=== PATIENT | male | born 1980 | race Caucasian/White ===

== ENCOUNTER 2021-01-04 13:47 | Outpatient (CLI) | payer OTHER, SELFPAY ==
--- NOTE | ~2021-01-04 | US_ITS ---
EXAMINATION: US thyroid EXAM DATE: 01/04/2021 14:24 INDICATION: Hypothyroidism. TECHNIQUE: Multiple grayscale and Doppler images of the thyroid were obtained (by a technologist who performed the scan) and subsequently reviewed. Individual nodules and recommendations may be reporte d in accordance with TI-RADS system as designated by the 2017 ACR White Paper TI-RADS committee. The re is no prior study for comparison. FINDINGS: Right there are lobe measures 4.4 x 1.6 x 1.7 cm, the left measuring 4.1 x 1.0 x 1.2 cm. There is sig nificantly heterogeneous thyroid echogenicity along with hypervascularity, appearance could indicate Juana's thyroiditis. Clinical correlation. No definite focal superimposed nodule identified withi n the heterogeneous parenchyma. IMPRESSION: Heterogeneous, hypervascular mildly enlarged thyroid. Clinical correlation. Reviewed, dictated and finalized at location A. IMPRESSION: Heterogeneous, hypervascular mildly enlarged thyroid. Clinical heather elation.
== END 2021-01-04 13:48 | disposition home or self-care (01) ==
PROVIDERS: PCP Emergency Medicine; Visit Provider Emergency Medicine
DX: E03.9 Hypothyroidism, unspecified (principal)
CPT/HCPCS: 76536

== ENCOUNTER → 2021-03-15 07:34 | Outpatient (CLI) | payer OTHER, SELFPAY ==
[2021-03-15 20:28] LABS: SARS-CoV-2 RNA PCR Negative
== END ==
PROVIDERS: PCP Emergency Medicine; Visit Provider Emergency Medicine
DX: R68.89 Other general symptoms and signs (principal); Z20.822 Contact with and (suspected) exposure to COVID-19
CPT/HCPCS: C9803; U0003; U0005

== ENCOUNTER 2021-06-28 08:58 | Outpatient (CLI) | payer OTHER, SELFPAY ==
--- NOTE | 2021-06-28 11:00 | NEURO_ITS ---
Impression: # Complains of gait dysfunction for long duration. # Normal nerve conduction study with polyphasic responses and significant decreased motor unit potentials. # Needle/EMG revealed neurogenic changes. 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 Nerve Conduction Studies Anti Sensory Summary Table Stim Site NR Peak (ms) P-T Amp (?V) Site1 Site2 Delta-P (ms) Dist (cm) Mihai (m/s) Left Sup Fibular Anti Sensory (Ant Lat Mall) 14 cm 3.8 6.1 14 cm Ant Lat Mall 3.8 16.0 42 Right Sup Fibular Anti Sensory (Ant Lat Mall) 14 cm 4.0 18.1 14 cm Ant Lat Mall 4.0 17.0 43 Left Sural Anti Sensory (Lat Mall) Calf 4.5 20.0 Calf Lat Mall 4.5 18.0 40 Right Sural Anti Sensory (Lat Mall) Calf 3.7 14.4 Calf Lat Mall 3.7 16.0 43 Motor Summary Table Stim Site NR Onset (ms) O-P Amp (mV) Site1 Site2 Delta-0 (ms) Dist (cm) Mihai (m/s) Left Peroneal Motor (Vastus Med) Ankle 4.3 1.1 Popit Ankle 8.6 40.0 47 Popit 12.9 1.2 Right Peroneal Motor (Vastus Med) Ankle 4.5 4.1 Popit Ankle 7.8 38.0 49 Popit 12.3 3.8 Left Tibial Motor (Abd Greenwood Brev) Ankle 4.9 0.6 Knee Ankle 9.2 44.0 48 Knee 14.1 0.5 Right Tibial Motor (Abd Greenwood Brev) Ankle 5.0 2.8 Knee Ankle 9.1 42.0 46 Knee 14.1 1.8 F Wave Studies NR F-Lat (ms) L-R F-Lat (ms) Left Peroneal (Mrkrs) (EDB) 53.54 0.74 Right Peroneal (Mrkrs) (EDB) 52.80 0.74 Left Tibial (Mrkrs) (Abd Hallucis) 54.52 0.38 Right Tibial (Mrkrs) (Abd Hallucis) 54.90 0.38 EMG Side Muscle Nerve Root Ins Act Fibs Amp Dur Recrt Comment Right AntTibialis Dp Br Fibular L4-5 Nml Nml Decr >12ms Reduced Right Gastroc Tibial S1-2 Nml Nml Decr >12ms Reduced Right Fibularis Long Sup Br Fibular L5-S1 Nml Nml Decr >12ms Reduced Right Flex Dig Long Tibial L5-S2 Nml Nml Nml Nml Nml Right Ext Dig Brev Dp Br Fibular L5, S1 Nml Nml Decr >12ms Reduced Left AntTibialis Dp Br Fibular L4-5 Nml Nml Decr >12ms Reduced Left Gastroc Tibial S1-2 Nml Nml Decr >12ms Reduced Left Flex Dig Long Tibial L5-S2 Nml Nml Nml Nml Nml Left Fibularis Long Sup Br Fibular L5-S1 Nml Nml Decr >12ms Reduced Left Ext Dig Brev Dp Br Fibular L5, S1 Nml Nml Decr >12ms Reduced MTDD
== END 2021-06-28 08:59 | disposition home or self-care (01) ==
LOC: ANHNEURO 09:01
PROVIDERS: PCP Emergency Medicine; Visit Provider Emergency Medicine
DX: G62.9 Polyneuropathy, unspecified (principal)
CPT/HCPCS: 95886; 95910

== ENCOUNTER → 2022-01-23 11:21 | Outpatient (CLI) | payer OTHER, SELFPAY ==
--- NOTE | ~2022-01-23 | US_ITS ---
EXAMINATION: US scrotum doppler DATE: 01/23/2022 11:59 INDICATION: ORCHALGIA . TECHNIQUE: Grayscale and Doppler ultrasound images of the testes were obtained. COMPARISON: None. FINDINGS: The right testis measures 5.3 x 3.4 x 3.1 cm. The left testis measures 4.6 x 3.4 x 3.0 cm. No testicular mass. There is normal vascular flow to both testes. The right epididymis is normal with normal vascular flow. The left epididymis contains a 2 cm simple cyst, with normal vascular flow. Sm all bilateral hydroceles. Small bilateral varicoceles. IMPRESSION: 2 cm left epididymal cyst. Small bilateral hydroceles. Small bilateral varicoceles. Reviewed, dictated and finalized at location K. IMPRESSION: 2 cm left epididymal cyst. Small bilateral hydroceles. Small bilateral varicoce les.
== END ==
PROVIDERS: PCP Emergency Medicine; Visit Provider Nurse Practitioner
DX: N50.819 Testicular pain, unspecified (principal); N50.3 Cyst of epididymis; N43.3 Hydrocele, unspecified; I86.1 Scrotal varices
CPT/HCPCS: 76870; 93976

== ENCOUNTER 2023-04-03 13:35 | Outpatient (CLI) | payer OTHER, SELFPAY ==
--- NOTE | ~2023-04-03 | XR_ITS ---
EXAMINATION: XR chest 2V 04/03/2023 13:58 INDICATION: Cough PROCEDURE: 2 view chest COMPARISON: 12/10/2010 FINDINGS: The lungs are clear. The cardiomediastinal silhouette is within normal limits. There are no pleural effusions. There is no pneumothorax suspected. IMPRESSION: 1: NO ACUTE CARDIOPULMONARY DISEASE. Reviewed, dictated and finalized at location L. NG MACHINE OPERATOR
== END 2023-04-03 13:36 | disposition home or self-care (01) ==
PROVIDERS: PCP Emergency Medicine; Visit Provider Emergency Medicine
DX: R61 Generalized hyperhidrosis (principal)
CPT/HCPCS: 71046

== ENCOUNTER 2023-04-18 05:49 | Day surgery (SDC) | payer OTHER, SELFPAY ==
[2023-04-13 09:47] VITALS: BMI 21.6
[2023-04-13 10:18] VITALS: BMI 21.8
[2023-04-18 06:22] VITALS: BP 131/110; PULSE 102; RESP 20; TEMP 37.7; O2SAT 100
[2023-04-18] MEDS: LACTATED RINGERS 1,000 ML 150 ML IV CONT (06:33)
--- NOTE | 2023-04-18 07:10 | P.PNAN_ITS ---
Anes - Initial Pre Proc Eval Procedure: Operation Date: 04/18/23 07:30 Proposed Procedures p Esophagogastroduodenoscopy - Andrés Andres MD s Colonoscopy - Andrés Andres MD Date/Time: 04/18/23 07:10 Surgeon: Andrés Andres MD Pre Op Diagnosis: Hepatomegaly w/splenomegaly, weight loss Patient Data Age: 42 Gender: M Height: 1.8 m Weight: 66.5 kg Last Vital Signs Temp 37.7 C H 04/18/23 06:22 Pulse 102 H 04/18/23 06:22 Resp 20 04/18/23 06:22 BP 131/110 H 04/18/23 06:22 Pulse Ox 100 04/18/23 06:22 O2 Del Method Room Air 04/18/23 06:22 Allergies Allergy/AdvReac Type Severity Reaction Status Date / Time No Known Allergies Allergy Verified 04/18/23 06:19 Home Medications Medication Instructions Recorded Confirmed Type baclofen 10 mg tablet 10 mg PO DAILY 04/13/23 04/18/23 History gabapentin 600 mg tablet 600 mg PO DAILY 04/13/23 04/18/23 History ipratropium 20 mcg-albuterol 100 1 puff inhalation DAILY 04/13/23 04/18/23 History mcg/actuation mist for inhalation (Combivent Respimat) levothyroxine 50 mcg tablet 50 mcg PO DAILY 04/13/23 04/18/23 History rosuvastatin 10 mg tablet 10 mg PO DAILY 04/13/23 04/18/23 History sertraline 100 mg tablet 100 mg POST-TRANSFUSION 04/13/23 04/18/23 History sodium,potassium,mag sulfates 17.5 See Rx Instructions PO .COMPLEX 04/13/23 04/18/23 Rx gram-3.13 gram-1.6 gram oral soln #354 mL (Suprep Bowel Prep Kit) Patient hx anesthesia problems: none Family hx anesthesia problems: none Results Review: All pre-operative results and documents have been reviewed as part of the pre- operative evaluation. [facility] Social History Social History Smoking packs per day: 0.5 Smoking cigarettes per day: 10.0 Years smoked: 20 Smoking pack-years: 10.00 Smoking status: Current every day smoker Tobacco type: cigarettes Alcohol intake: never Substance use: never Living arrangements: with family Spiritual care concerns: No Anes - Eval Final PreProcedure Day of Procedure 04/18/23 07:10 Patient weight: thin Heart: regular rate and rhythm Lungs: decreased breath sounds Airway: Mallampati scale class II Neurological: alert and oriented Last oral intake: >/= 8 hours ASA classification: III Emergent: no Anesthetic plan: proceed Anesthesia type and monitoring: general GIVS and standard monitoring Results Review: All pre-operative results and documents have been reviewed as part of the pre- operative evaluation. Informed Consent: The patient's anesthetic plan and its attendant risks and benefits were discussed with the patient/family/POA. Questions were solicited and answers provided to the satisfaction of the patient/family/POA.
--- NOTE | 2023-04-18 07:21 | PM.HPGS ---
History of Present Illness History of Present Illness Consent: Risks, benefits, and alternatives have been discussed and questions answered. Patient agrees to proceed with procedure. Chief complaint: Hepatomegaly w/splenomegaly, weight loss Narrative: Graham Kerr is a 42 [address] Dr. Evans. Patient complaining of malaise appears states he has a poor appetite. He gets full early states he has perhaps lost 20lb over the last 6 months. Apparently he went to the ER in [place]. He was found to have an elevated white count. Subsequently referred to Hematology for evaluation with workup in progress. These records are not available for review. A CT scan is described that apparently shows enlarged liver and spleen. He denies any prior liver or spleen difficulties. 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 Patient does provide recent CBC with mildly elevated white count of 14. Iron studies are normal. Function tests are normal. Scope be and EGD are requested Review of Systems Review of Systems: All systems reviewed & are unremarkable except as noted in HPI and below PMFSH Social History Social History Smoking packs per day: 0.5 Smoking cigarettes per day: 10.0 Years smoked: 20 Smoking pack-years: 10.00 Smoking status: Current every day smoker Tobacco type: cigarettes Alcohol intake: never Substance use: never Living arrangements: with family Spiritual care concerns: No Meds Home Medications and Allergies Home Medications Medication Instructions Recorded Confirmed Type baclofen 10 mg tablet 10 mg PO DAILY 04/13/23 04/18/23 History gabapentin 600 mg tablet 600 mg PO DAILY 04/13/23 04/18/23 History ipratropium 20 mcg-albuterol 100 1 puff inhalation DAILY 04/13/23 04/18/23 History mcg/actuation mist for inhalation (Combivent Respimat) levothyroxine 50 mcg tablet 50 mcg PO DAILY 04/13/23 04/18/23 History rosuvastatin 10 mg tablet 10 mg PO DAILY 04/13/23 04/18/23 History sertraline 100 mg tablet 100 mg POST-TRANSFUSION 04/13/23 04/18/23 History sodium,potassium,mag sulfates 17.5 See Rx Instructions PO .COMPLEX 04/13/23 04/18/23 Rx gram-3.13 gram-1.6 gram oral soln #354 mL (Suprep Bowel Prep Kit) Allergies Allergy/AdvReac Type Severity Reaction Status Date / Time No Known Allergies Allergy Verified 04/18/23 06:19 Vital Signs Vital Signs - 24 hr 04/18/23 06:22 Temperature 99.9 F H Pulse Rate 102 H Respiratory Rate 20 Blood Pressure 131/110 H Pulse Oximetry 100 Oxygen Delivery Room Air Exam Narrative: Physical exam reveals patient to be alert. Vital signs stable. HEENT exam is unremarkable. Patient is anicteric. Lungs are clear to auscultation and to percussion. Heart is without murmur or extra sounds. Abdomen is soft. Bowel sounds are present nontender with no organomegaly. Digital external rectal exam is normal. Assessment and Plan Assessment and plan (1) Weight loss: Code(s): R63.4 - Abnormal weight loss Status: Acute Assessment and Plan: Patient has weight loss which is rather nonspecific. Patient reports an abnormal CT scan which apparently showed enlarged liver and spleen. Colonoscopy and EGD are requested which will be performed today. It may be prudent to have all lactose x-rays available and patient be seen in the ER for a full consultation. (2) Abnormal CT scan, liver: Code(s): R93.2 - Abnormal findings on diagnostic imaging of liver and biliary tract Status: Acute Assessment and Plan: Obvious liver enlargement on physical exam. A abnormal x-ray described as not available for review. Suggest this x-ray accompany patient consultation if necessary.
[2023-04-18 07:57] VITALS: BP 81/58; PULSE 81; RESP 20; O2SAT 98
[2023-04-18 08:08] VITALS: BP 90/62; PULSE 75; RESP 20; O2SAT 98
[2023-04-18 08:17] VITALS: BP 106/84; PULSE 70; RESP 18; O2SAT 100
[2023-04-18 08:27] VITALS: BP 116/88; PULSE 79; RESP 18; O2SAT 100
--- NOTE | 2023-04-18 09:03 | WPDANESPN ---
Anes - Prog Note Post-Op Date/Time: 04/18/23 09:03 Cardiovascular status: normal Respiratory status: normal Airway patency: baseline Mental status: baseline Post-Op hydration status: normal Vital Signs: Last Vital Signs Temp 37.7 C H 04/18/23 06:22 Pulse 79 04/18/23 08:27 Resp 18 04/18/23 08:27 BP 116/88 04/18/23 08:27 Pulse Ox 100 04/18/23 08:27 O2 Del Method Room Air 04/18/23 08:27 Pain Score (VAS): 0 I/O: Intake & Output 04/17/23 04/18/23 04/18/23 23:59 07:59 15:59 Intake Total 450 300 Balance 450 300 Patient Feedback: Patient satisfied with anesthetic care.
== END 2023-04-18 08:47 | disposition home or self-care (01) ==
PROVIDERS: PCP Emergency Medicine; Visit Provider Internal Medicine Gastroenterology
PROC: 0DJ08ZZ Inspection of Upper Intestinal Tract, Via Natural or Artificial Opening Endoscopic (ICD-10-PCS; CPT 43235; principal; 2023-04-18 07:30)
PROC: 0DJD8ZZ Inspection of Lower Intestinal Tract, Via Natural or Artificial Opening Endoscopic (ICD-10-PCS; CPT 45378; 2023-04-18 07:30)
DX: R63.4 Abnormal weight loss (principal); R93.3 Abnormal findings on diagnostic imaging of other parts of digestive tract; D12.2 Benign neoplasm of ascending colon; K64.8 Other hemorrhoids
CPT/HCPCS: 45385; 43239

== ENCOUNTER 2023-04-18 07:00 | Outpatient (NON) | payer OTHER, SELFPAY | END 2023-04-18 07:01 | disposition home or self-care (01) | LOC: ANHLAB 04-19 06:59 | PROVIDERS: PCP Emergency Medicine; Visit Provider Internal Medicine Gastroenterology | DX: R63.4 Abnormal weight loss (principal) | CPT/HCPCS: 88305 ==

== ENCOUNTER 2024-10-27 18:07 | Emergency (ER) | payer OTHER, SELFPAY ==
--- NOTE | ~2024-10-27 | CT_ITS ---
EXAMINATION: CT brain wo con DATE: 10/27/2024 21:12 INDICATION: head injury . TECHNIQUE: Computed tomography (CT) of the head was performed without intravenous contrast. The mA wa s adjusted according to patient size. Iterative reconstruction technique was employed. The dose-lengt h product was 756.67 mGy-cm. COMPARISON: 10/22/2009. FINDINGS: No acute intracranial hemorrhage or extra-axial fluid collection. No hydrocephalus, mass, or herniation. No acute ischemic infarct. Unremarkable dural venous sinus attenuation. No acute osseous abnormality. Small retention cysts or polyps in the left maxillary sinus. Nodular mucosal thickening in the bilate ral frontal, bilateral ethmoid and left sphenoid sinuses. Aerated secretions in the left frontal sinu s The remaining aerated spaces are clear. IMPRESSION: No acute intracranial process. Polypoid and mucoperiosteal sinus disease. Aerated secretions in the left frontal sinus as can be see n with acute sinusitis or minor mucosal hemorrhage in the setting of trauma. Reviewed, dictated and finalized at location K. IMPRESSION: No acute intracranial process. Polypoid and mucoperiosteal sinus disease. Aerated secretions in the left front al sinus as can be seen with acute sinusitis or minor mucosal hemorrhage in the setting of trauma.
--- NOTE | ~2024-10-27 | CT_ITS ---
EXAMINATION: CT facial bones wo con DATE: 10/27/2024 21:12 INDICATION: facial injury . TECHNIQUE: Computed tomography (CT) of the facial bones and maxillofacial region was performed with i ntravenous contrast. Automated exposure control and iterative reconstruction technique were employed. The dose-length product was 392.13 mGy-cm. COMPARISON: None. FINDINGS: Soft Tissues: Soft tissue swelling and subcutaneous gas over the left upper lip extending minimally into the tissues at the base of the nose and left cheek. Facial bones: No acute fracture. No lytic or blastic process. Eyes: The globes are intact. The soft tissue planes of the orbits are maintained. Paranasal Sinuses: Small retention cysts or polyps in the left maxillary sinus. Nodular mucosal thic kening in the bilateral frontal, bilateral ethmoid and left sphenoid sinuses. Aerated secretions in t he left frontal sinus The remaining aerated spaces are clear. Foreign Bodies: No radiopaque foreign bodies. Other Findings: Periodontal disease. Multiple absent teeth. Upper arterial denture appears to be in p lace. IMPRESSION: Left upper lip soft tissue injury, correlate for penetrating trauma. No radiopaque foreign body detec angela. Facial bone fracture detected. Possible arch denture or removal dental appliance, correlate clinically. Polypoid and mucoperiosteal sinus disease. Aerated secretions in the left frontal sinus as can be see n with acute sinusitis or minor mucosal hemorrhage in the setting of trauma. Reviewed, dictated and finalized at location K. IMPRESSION: Left upper lip soft tissue injury, correlate for penetrating trauma. No radiopa que foreign body detected. Facial bone fracture detected. Possible arch denture or removal dental appliance, correlate clinically. Polypoid and mucoperiosteal sinus disease. Aerated secretions in the left front al sinus as can be seen with acute sinusitis or minor mucosal hemorrhage in the setting of trauma.
--- OUTSIDE RECORDS SUMMARY | 2024-10-27 18:09 | XMS_ITS | Clinical Summary ---
Author Organization [facility] Address [address] [place] [address] Phone Care Team Providers Care Lead Athlete Name Role Phone Kale Evans Primary Care Provider [phone] Last Flor MD Unavailable Doug Sims APRN, CNP Unavailable [phone] Allergies No known active allergies Medications gabapentin (NEURONTIN) 600 MG Tablet Take 600 mg by mouth every 8 hours as needed. 2 Active levothyroxine (SYNTHROID) 50 MCG Tablet Take 50 mcg by mouth nightly. Active baclofen (LIORESAL) 10 MG Tablet Take 10 mg by mouth 2 times daily as needed. 2 Active sertraline (ZOLOFT) 100 MG Tablet Take 100 mg by mouth daily. 2 Active traMADol (ULTRAM) 50 MG Tablet Take 50 mg by mouth 2 times daily as needed. 2 Active rosuvastatin (CRESTOR) 10 MG Tablet Take 10 mg by mouth daily. Active acetaminophen (TYLENOL) 325 MG Tablet Take 1 Tablet by mouth every 6 hours as needed for Fever (for temperature greater than 100.4 F.). Do not exceed 4000 mg of acetaminophen in 24 hour from all sources. 3 Active Additional Information Patient not taking.Reported on 05/10/2023 ibuprofen (MOTRIN) 800 MG Tablet Take 1 Tablet by mouth every 8 hours. 30 Tablet 3 3 Active oxyCODONE (ROXICODONE) 5 MG TabletIndicati ons:S/P hernia repair Take 1 Tablet by mouth every 4 hours as needed for Severe pain. 20 Tablet 3 Active Additional Information Patient not taking.Reported on 03/05/2023 solifenacin (VESICARE) 5 MG TabletIndicati ons:Urinary frequency,Urin zackary urgency TAKE 1 TABLET BY MOUTH DAILY 90 Tablet 3 3 Active methylPREDNISo lone (MEDROL DOSPACK) 4 MG Tablet Therapy Pack See product package insert for dosing schedule 21 Tablet 3 Active ipratropium-al buterol (COMBIVENT RESPIMAT) 20-100 MCG/ACT Aerosol Solution take 2 Puffs by inhalation every 4 hours as needed for Wheezing. 4 g 1 3 Active folic acid (FOLVITE) 1 MG Tablet Take 1 Tablet by mouth daily. 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 Depression 05/10/2022 Incarcerated umbilical hernia 10/30/2021 Encounters Date Type Department Care Team Description 09/29/2024 2:04 PM CDT - 09/29/2024 2:10 PM CDT Emergency [facility] Emergency [address] [place] [address] Discharge Disposition: LWBS 09/29/2024 Travel from Last 3 Months Family History Medical History Relation Name Comments Diabetes Brother No Known Problems Daughter 1 No Known Problems Daughter 2 Congestive Heart Failure Father Heart Attack Father Diabetes Mother Heart Attack Mother Diabetes Sister No Known Problems Son adopted Relation Name Status Comments Brother Alive Daughter 1 Alive Daughter 2 Alive Father Alive Mother Sister Alive Son adopted Alive Social History Tobacco Use Types Packs/Day Years Used Date Smoking Tobacco: Former Cigarettes 1 28.2 1 996 - 06/2023 Smokeless Tobacco: Never Tobacco Cessation:Counseling Given: Yes Comments:Pack a day until he quit for 3 years and now a pack every 3 days Alcohol Use Standard Drinks/Week Comments Not Currently 0 (1 standard drink = 0.6 oz pur e alcohol) One drink every 6 months AUDIT-C Answer Date Recorded Q1: How often do you have a drink containing alc ohol? Never 02/22/2020 Average Number of Drinks Not on file 020 Frequency of Binge Drinking Not on file 02/07 Sexually Active Control Partners Comments Yes Female Sex and Gender Information Value Date Recorded Sex Assigned at Not on file Legal Sex Male 12:29 AM CDT Gender Identity Not on file Sexual Orientation Not on file Last Filed Vital Signs Vital Sign Reading Time Taken Comments Blood Pressure 116/69 09/29/2024 12:57 PM CDT Pulse 86 09/29/2024 12:57 PM CDT Temperature 36.6 C (97.9 F) 09/29/2024 12:57 PM CDT Respiratory Rate 18 09/29/2024 12:57 PM CDT Oxygen Saturation 96% 09/29/2024 12:57 PM CDT Inhaled Oxygen Concentration - - Weight 76.4 kg (168 lb 8 oz) 09/29/2024 12:57 PM CDT Height 180.3 cm (5' 11) 09/29/2024 12:57 PM CDT Body Mass Index 23.5 09/29/2024 12:57 PM CDT Plan of Treatment Health Maintenance Due Date Last Done Comments Human Papillomavirus (HPV) Immunization (1 - Male 3-dose series) 1997 Hepatitis B Immunization (1 of 3 - 19+ 3-dose series) 2001 SARS-COV-2 Immunization ( - 2023- season) 2023 11/26/2020, 11/05/2020 Influenza Immunization (#1) 2024 12/0 08/2018, 05/08/2014 Respiratory Syncytial Virus (RSV) Immunization (Adult) (1 - 1-dose 75+ series) 2057 DTaP/Tdap/Td Immunization Discontinued 09/26/2018 TdaP Immunization Completed 09/26/2018 Pneumococcal Immunization Combined Aged Out 04/07/2019 No longer eligible based on patient's age to complete this topic Hepatitis C Virus (HCV) Screening Completed 04/12/2023 Meningococcal Immunization (ACWY) Aged Out No longer eligible based on patient's age to complete this topic Rotavirus Immunization Aged Out No lo nger eligible based on patient's age to complete this topic Medical Devices Implanted Type Area [employer] Bpm Developer Device Identifier Shelf Expiration Date Model / Serial / Lot Impl Msh Jose Antonio Ventralex St [employer]rap Cir Sm 1.7x1.7in - [id number] Implanted:Qty : 1 on 01/19/2023 by Last Flor MD at [facility] IMPLANT N/A: [employer]mb[employer] 02/04/2024 [id number] / [id number] / [id number] Procedures Procedure Name Priority Date/Time Associated Diagnosis Comments HEPATITIS C ANTIBODY Routine 04/12/2023 2:03 PM COMMUNICATIONS ANALYST Leukocytosis, unspecified type Weight loss Night sweats Other fatigue Low serum iron from Last 3 Months or Most Recently Relevant to Health Maintenance Results * HEPATITIS C ANTIBODY (04/12/2023 2:03 PM COMMUNICATIONS ANALYST) HEPATITIS C VIRUS AB SIGNAL CUTOFF NON REACTIVE NON REACTIVE CANCER BAIL BONDING AGENT [facility] HEPATITIS C VIRUS AB COMMENT CANCER BAIL BONDING AGENT OF [facility] Comment: NOT INFECTED WITH HCV UNLESS EARLY OR ACUTE INFECTION IS SUSPECTED (WHICH MAY BE DELAYED IN AN IMMUNOCOMPROMISED INDIVIDUAL), OR OTHER EVIDENCE EXISTS TO INDICATE HCV INFECTION. Blood 04/12/2023 2:03 PM COMMUNICATIONS ANALYST Narrative CANCER BAIL BONDING AGENT [facility] - 04/13/2023 11:08 AM COMMUNICATIONS ANALYST TESTING PERFORMED AT: [] [address], [address], PHONE: [phone], MOLD INSERT CHANGER: JERMAINE FAJARDO, PHD Release to patient->Immediate us Lissy Melgar MD CHEMISTRY ORDERABLES Final Resul t CANCER BAIL BONDING AGENT [facility] [address] [address], from Last 3 Months or Most Recently Relevant to Health Maintenance Insurance [facility] Advance Directives * Full Code (Latest Code Status on File) Date Activated Date Inactivated Comments 10/30/2021 9:50 PM 10/31/2021 9:01 PM CPR-Full Be atment: FULL ARREST: Attempt Resuscitation/CPR wit intubation and mechanical ventilation. PRE-ARREST: Use entire range of life support measures to stabilize the patient. Care Teams Lead Athlete Relationship Specialty Start Date End Date Kale Evans [address] [place] [address] PCP - General Family Medicine 10/30/21 Last Flor MD [address] [address] Consulting Physician Colon and Rectal Surgery 11/08/21 Doug Sims APRN, EXTENSION SERVICE ADVISOR [address] [place] [address] Nurse Practitioner Advanced Practice Nurse 03/05/23
--- OUTSIDE RECORDS SUMMARY | 2024-10-27 18:09 | XMS_ITS | Encounter Summary ---
Author Organization [facility] Address [facility] [place] [address] Care Team Providers Care Sewage Treatment Plant Operator Name Role Phone Kale Evans MD Primary Care Provider [phone] Encounter Details Date Type Department Care Team (Late st Contact Info) Description 03/07/2022 [facility] [address] [address] Shreyas Jo MA Social History Tobacco Use Types Packs/Day Years Used Date Smoking Tobacco: Every Day Cigarettes Smokeless Tobacco: Never Alcohol Use Standard Drinks/Week Comments Never 0 (1 standard drink = 0.6 oz pur e alcohol) AUDIT-C Answer Date Recorded Q1: How often do you have a drink containing alc ohol? Never 12/23/2019 Average Number of Drinks Not on file 020 Frequency of Binge Drinking Not on file 12/08 Sex and Gender Information Value Date Recorded Sex Assigned at Not on file Legal Sex Male 8:27 PM CDT Gender Identity Not on file Sexual Orientation Not on file COVID-19 Exposure Response Date Recorded In the last 10 days, have yo u been in contact with someone who was confirmed or suspected to have Coronavirus/COVID-19? No / Unsure 03/06/2022 9:39 AM WEIGHER AND MIXER documented as of this encounter Plan of Treatment Not on file documented as of this encounter Procedures Procedure Name Priority Date/Time Associated Diagnosis Comments CBC (OUTSIDE LAB) Routine 02/04/2022 LIPID PANEL Routine 02/04/2022 HEPATIC FUNCTION PANEL Routine 02/04/2022 THYROID STIM HORMONE TSH Routine 02/02/2022 documented in this encounter Results * LIPID PANEL (02/04/2022) Pathologist [facility] CHOLESTEROL 143 HDL 39 TRIGLYCERIDES 117 NON HDL CHOLESTEROL 104 LDL (CALCULATED) 83 02/04/2022 us Default History Genericprovider LABORATORY Final Result * HEPATIC FUNCTION PANEL (02/04/2022) Pathologist [facility] ALBUMIN S/P/B 4.7 3.5 - 5.0 ALKALINE PHOSPHATASE S/P/B 100 ALT 50 AST 35 BILIRUBIN DIRECT S/P/B 0.1 BILIRUBIN TOTAL S/P/B 0.6 TOTAL PROTEIN S/P/B 6.9 GLOBULIN 2.2 02/04/2022 us Default History Genericprovider LABORATORY Final Result * CBC (OUTSIDE LAB) (02/04/2022) Pathologist [facility] WBC 15.9 HGB 14.7 HCT 44.3 PLT 296 02/04/2022 us Default History Genericprovider LAB-OUTSIDE/ABST RACTED Final Result * THYROID STIM HORMONE, TSH (02/02/2022) Pathologist [facility] TSH 1.83 02/02/2022 us Default History Genericprovider LABORATORY Final Result documented in this encounter Visit Diagnoses Not on filedocumented in this encounter Care Teams Sewage Treatment Plant Operator Relationship Specialty Start Date End Date Kale Evans MD [address] [place] [address] PCP - General FAMILY PRACTICE 02/08/22 documented as of this encounter
--- OUTSIDE RECORDS SUMMARY | 2024-10-27 18:09 | XMS_ITS | Clinical Summary ---
Author Organization [facility] Address [address] [place] [address] Care Team Providers Care Print Designer Name Role Phone Kale Evans MD Primary Care Provider [phone] Allergies No known active allergies Medications levothyroxine 50 MCG tablet Take 1 tablet (50 mcg total) by mouth every morning. Active rosuvastatin (CRESTOR) 10 MG tablet Take 1 tablet (10 mg total) by mouth daily. 01/27/20 22 Active sertraline (ZOLOFT) 100 MG tablet Take 1 tablet (100 mg total) by mouth daily. 02/08/20 22 Active traMADol HCl 100 MG Tab Take 1 tablet (100 mg total) by mouth 2 (two) times daily as needed. 10/29/19 24 Active folic acid (FOLVITE) 1 MG tablet Take 1 tablet (1 mg total) by mouth daily. 04/13/19 24 Active Fluticasone-Umec lidin-Vilant (TRELEGY ELLIPTA) 200-62.5-25 MCG/ACT AEROSOL POWDER, BREATH ACTIVATEDIndicat ions:Moderate persistent reactive airway disease without complication (HHS/HCC) Inhale 1 puff into the lungs daily. 28 each 6 11/14/19 24 Active albuterol sulfate HFA 108 (90 Base) MCG/ACT inhalerIndicatio ns:Moderate persistent reactive airway disease without complication (HHS/HCC) Inhale 2 puffs into the lungs every 6 (six) hours as needed for Wheezing. 6.7 g 6 11/14/19 24 Active Albuterol-Budeso nide (AIRSUPRA) 90-80 MCG/ACT AerosolIndicatio ns:Moderate persistent reactive airway disease without complication (HHS/HCC) Inhale 2 puffs into the lungs every 4 (four) hours as needed. 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 With history of meningitis age 27 which is when low back pain began. Was seen by physical medicine; had EMG- per note: Conclusions: 1. Abnormal study. Electrodiagnostic evidence of reinnervation and remote deinnervation throughout his left lower limb suggestive of a remote L2-S1 polyradiculopathy or lumbosacral plexopathy. Clinically this may correlate with his history of spinal meningitis 11 years ago. 2. No electrodiagnostic evidence of an acute lumbosacral radiculopathy, lumbosacral plexopathy, myopathy, or generalized large fiber polyneuropathy. There were some positive waves and fibrillations in the L4-S1 distribution, however these were very small (suggestive of remote deinnervation with atrophy of the muscle fibers). Recommendations: 1. We discussed the results of the study and there was no electrodiagnostic evidence of acute deinnervation to explain is intermittently increased pain/numbness. He is scheduled for an MRI of his L-spine. I suspect he may be intermittently irritating a nerve root in his lumbar spine and may benefit from a course of physical therapy depending on the results of the MRI. We briefly discussed other treatment options, including oral medications, interventional spine injections, and surgery also. 2. Follow up as needed. Has seen neurology for low back pain/ left leg pain and wakness; MRI done- per neurology- no significant findings. Plan: Referred to physical therapy To follow up with neurology in 4-6 weeks Radiculopathy of sacral region 04/07/2019 Weakness of left leg 04/07/2019 Overview (09/11/2024): With pain and muscle wasting. With history of meningitis age 27 which is when low back pain began. Was seen by physical medicine; had EMG- per note: Conclusions: 1. Abnormal study. Electrodiagnostic evidence of reinnervation and remote deinnervation throughout his left lower limb suggestive of a remote L2-S1 polyradiculopathy or lumbosacral plexopathy. Clinically this may correlate with his history of spinal meningitis 11 years ago. 2. No electrodiagnostic evidence of an acute lumbosacral radiculopathy, lumbosacral plexopathy, myopathy, or generalized large fiber polyneuropathy. There were some positive waves and fibrillations in the L4-S1 distribution, however these were very small (suggestive of remote deinnervation with atrophy of the muscle fibers). Recommendations: 1. We discussed the results of the study and there was no electrodiagnostic evidence of acute deinnervation to explain is intermittently increased pain/numbness. He is scheduled for an MRI of his L-spine. I suspect he may be intermittently irritating a nerve root in his lumbar spine and may benefit from a course of physical therapy depending on the results of the MRI. We briefly discussed other treatment options, including oral medications, interventional spine injections, and surgery also. 2. Follow up as needed. Has seen neurology for low back pain/ left leg pain and wakness; MRI done- per neurology- no significant findings. 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 Was reportedly seen by neurology some years ago, but not established currently. Has prescription for gabapentin, though admits to only taking once daily for concerns of addiction and adverse effects. 01/21/2019: Advised to take gabapentin as prescribed, 300 mg 3 times daily -Ambulatory referral made today to neurology due to sequela from meningitis - We will obtain records from previous providers Subclinical hypothyroidism 01/27/2019 Overview (09/11/2024): Recent TSH of 16, but with normal T4. Started initially on 25 mcg levothyroxine. 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 [address] [place] [address] Cesar De Souza, Medication Problem from Last 3 Months Family History Medical History Relation Comments Atrial fibrillation Father CABG Father x3 & Valve Repla cement-unsure of valve COPD Father Coronary artery disease Father Hypertension Father Stent Cardiac Father Heart Attack Maternal Grandfather Stroke Maternal Grandmother COPD Mother Diabetes Mother Heart Attack Paternal Grandfather Pacemaker Paternal Grandmother Thyroid cancer Paternal Uncle Asthma Sister Diabetes Sister Relation Status Comments Brother Alive Father Alive Maternal Grandfather Maternal Grandmother Mother Paternal Grandfather Paternal Grandmother Paternal Uncle Sister Alive Social History Tobacco Use Types Packs/Day Years Used Date Smoking Tobacco: Former Cigarettes 1.1 29.3 S tarted: 08/2001 Smokeless Tobacco: Never Tobacco Cessation:Counseling Given: Yes Alcohol Use Standard Drinks/Week Comments Never 0 [...] Sign Reading Time Taken Comments Blood Pressure 130/71 06/13/2024 11:12 AM CLINICAL PSYCHOLOGY PROFESSOR Pulse 81 06/13/2024 11:12 AM CLINICAL PSYCHOLOGY PROFESSOR Temperature 36.8 C (98.2 F) 12/23/2019 8:51 AM CDT Respiratory Rate 16 06/13/2024 11:12 AM CLINICAL PSYCHOLOGY PROFESSOR Oxygen Saturation 99% 06/13/2024 11:12 AM CLINICAL PSYCHOLOGY PROFESSOR ra Inhaled Oxygen Concentration - - Weight 73.5 kg (162 lb) 06/13/2024 11:12 AM CLINICAL PSYCHOLOGY PROFESSOR Height 180.3 cm (5' 11) 06/13/2024 11:12 AM CLINICAL PSYCHOLOGY PROFESSOR Body Mass Index 22.59 06/13/2024 11:12 AM CLINICAL PSYCHOLOGY PROFESSOR Plan of Treatment Health Maintenance Due Date Last Done Comments Annual Physical 1985 Hepatitis C 2000 Hepatitis B Vaccines (1 of 3 - 19+ 3-dose series) 2001 HPV Vaccines (1 - 3-dose SCD M series) 2009 Pneumococcal Vaccine: Pediatrics (0 to 5 Years) and At-Risk Patients (6 to 49 Years) (2 of 2 - PCV) 04/07/2020 04/07/2019 COVID-19 Vaccine (3 - 2023-2 5 season) 2023 11/26/2020, 11/05/2020 PHQ-2 (Physician Gilman) 04/09/2024 DTaP, Tdap and Td Vaccines ( 2 - Td or Tdap) 09/26/2028 09/26/2018 Meningococcal B Vaccine Aged Out No l onger eligible based on patient's age to complete this topic Meningococcal Vaccine Aged Out No aimee mylene eligible based on patient's age to complete this topic RSV Immunizations Under 20 Months Aged Out No longer eligible b ased on patient's age to complete this topic Insurance , [address] [place] [address] [facility] [place] [address] Care Teams Print Designer Relationship Specialty Start Date End Date Kale Evans MD [address] [place] [address] PCP - General FAMILY PRACTICE 02/08/22
--- OUTSIDE RECORDS SUMMARY | 2024-10-27 18:09 | XMS_ITS | Data Portability ---
Author Organization [place] [facility], Main Office Address [address] [place] [address] Care Team Providers Care R D Engineer Name Role Phone ARABELLA MON Primary Care Provider ARABELLA MON Referring Provider [phone] Assessment Encounter Date Assessment Date Assessment LastModified by Organization Details LastModified Time 07/02/2024 07/02/2024 43-year-old male presents for evaluation of his left knee. He reports pain is knee for about 3 months, without any acute injury. 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 He has pain with being on his hands and knees and getting up and down from that position. He has pain over the medial joint line and also frequent popping especially when he rotates his knee. He has a history of COPD, smokes approximately 1 pack a day. He has a history of 2 meniscus surgeries on his contralateral side. He also has a history of spinal meningitis so has some atrophy of his left leg compared to the right. Review of systems per patient questionnaire Physical exam: He has tenderness palpation of medial joint line. Range of motion 0-140. Positive Last's. 1A Starr, stable posterior drawer, stable varus and valgus stress. Nonantalgic gait. X-rays were reviewed, demonstrating no acute bony abnormality, slight medial compartment joint space narrowing he has meniscal symptoms including mechanical popping. We will begin with a course of conservative management. He is currently on ibuprofen 800 prescribed by his PCP and we will order him a course of physical therapy. If he has persistent symptoms, then we would plan to get an MRI to look for a tear in his meniscus. We discussed that if he experiences more catching and locking of, he should give us a call we will get the scan sooner. He is in agreement with the plan. We also discussed nicotine cessation, 3 minutes were spent. [email or web address] Not available 07/02/2024 16:24:42 Plan of Treatment Reminders Order Date Submit Date Provider Last Modified By Organization Details Last Modified Time Details Appointments None recorded. Lab None recorded. Referral physical therapist referral - Please contact pt to schedule for L knee. Thanks 2024 025 [facility] [address] , [place], [address], 5 11:36:10 Procedures None recorded. Surgeries None recorded. Imaging XR, knee, 3 view 2024 025 [email or web address] [facility] [place], [address], [place], [address], 16:10:54 Medication Orders None recorded. Patient TargetsNo targets recorded. Patient InstructionsNo instructions recorded. Reason for Referral Physical Therapist Referral for Derangement of knee L knee Please contact pt to schedule for L knee. Thanks Referring Physician: Graham Madsen, Orthopedic Surgery, Encounter Date: 07/02/2024 Results Created Date Observation Date Name Description Value Unit Range Abnormal Flag Note LastModifiedBy Organization Detail LastModifiedTime 07/03/19 25 XR, knee, 3 view No observ ation record ed. [email or web address] [facility] [place] [address], [place], [address], 07/02/2024 15:56:01 Result Notes None recorded. Problems Name Problem SNOMED Code Status Onset Date Resolution Date Notes Provider Name and Address Organization Details Recorded Time Osteoarthriti s of knee 521356855 Active Not Available [facility] 3 14:09:17 Current tear of medial cartilage AND/OR meniscus of knee Active Not Available [facility] 3 14:09:17 Derangement of knee 53446620 Active Not Available [facility] 3 14:09:17 Derangement of knee 26041615 Active 2024 JEISON Long null, [place] [facility] 15:55:50 Problem Notes None recorded. Procedures Surgical History Date Name Laterality Status Provider Name and Address Organization Details Recorded Time Knee Surgery completed Mary Kate Lanier David [facility] 07/02/2024 15:54:01 Hand completed Mary Kate Lanier David [facility] 07/02/2024 15:54:25 Appendectomy completed Mary Kate Lanier [facility] 07/02/2024 15:54:39 Imaging Results None recorded. Procedure Notes None recorded. Medical Equipment None Reported. Medications Name Sig Start Date Stop Date Status Note LastModified by Organization Details LastModified Time ibuprofen 800 mg tablet TAKE 1 TABLET BY MOUTH EVERY 8 HOURS active Not Available Not Available No t Available hydrocodone 5 mg-acetamin ophen 325 mg tablet TK 1 T PO PO Q 6 HOURS PRN P 06/24 completed Not Available Not Available Not Available prednisone 20 mg tablet TAKE 3 TABLETS BY MOUTH EVERY DAY active Not Available Not Available No t Available sertraline 100 mg tablet TAKE 1 TABLET BY MOUTH EVERY DAY active Not Available Not Available No t Available tramadol 50 mg tablet TK 1 T PO Q 8 HOURS PRN 06/24 completed Not Available Not Available Not Available levothyroxi ne 50 mcg tablet TAKE 1 TABLET BY MOUTH EVERY DAY active Not Available Not Available No t Available hydrocodone 7.5 mg-acetamin ophen 325 mg tablet TK 1 T PO Q 4 H PRF PAIN 06/24 completed Not Available Not Available Not Available methylpredn isolone 4 mg tablets in a dose pack TK UTD 06/24 completed Not Available Not Available Not Available albuterol sulfate HFA 90 mcg/actuati on aerosol inhaler INHALE 2 PUFFS EVERY 6 HOURS NEEDED FOR WHEEZING active Not Available Not Available No t Available rosuvastati n 10 mg tablet TAKE 1 TABLET BY MOUTH EVERY DAY active Not Available Not Available No t Available tramadol 100 mg tablet TAKE 1 TABLET BY MOUTH TWICE DAILY NEEDED FOR PAIN. AVOID DRIVING OR OPERATING MACHINES. active Not Available Not Available No t Available Trelegy Ellipta 200 mcg-62.5 mcg-25 mcg powder for inhalation INHALE 1 PUFF EVERY DAY active Not Available Not Available No t Available Airsupra 90 mcg-80 mcg/actuati on HFA aerosol inhaler INHALE 2 PUFFS INTO THE LUNGS EVERY 4 HOURS NEEDED active Not Available Not Available No t Available Vitals Date Recorded Body height Body mass index (BMI) Body weight Provider Name and Address Organization Details Last Updated DateTime 07/02/2024 180.34 cm 22.6 kg/m2 70656.96 g JEISON Long [employer] [facility] 07/02/2024 15:51:48 Social History Question Answer Notes LastModified by Organizat ion Details LastModified Time Tobacco Smoking Status Current Every Day Smoker Mary Kate JEISON Lanier null, [facility] 07/02/2024 15:53:13 What Was The Date Of Your Most Recent Tobacco Screening? 07/02/2024 Information not available 07/02/2024 How Much Tobacco Do You Smoke? 1 PPD [email or web address] Information not available 07/02/2024 Sex: Unknown Functional Status Question Answer Note LastModified by Organization D etails LastModified Time What is your level of alcohol consumption? None Information not available 07/02/2024 Mental Status None recorded. Family History Relationship Description Onset Age of this Age Resolved Age Notes LastModified by Organization Details LastModified Time Father Heart disease [email or web address] Not available 2024 15:52:17 Father Diabetes mellitus [email or web address] Not available 2024 15:52:43 Paternal Grandmother History of malignant neoplasm [email or web address] Not available 2024 15:52:30 Medical History Condition Response ANEMIA/BLOOD DISORDER Y COPD Y Past Encounters Encounter ID Performer Location Encounter Start Date Encounter Closed Date Diagnosis/Indication Diagnosis SNOMED-CT Code Diagnosis ICD10 Code Diagnosis Note [id number] Graham Madsen MD [facility] [place] [address] [place] [address] 07/02/2024 15:26:18 07/02/2024 16:17:23 Derangement of knee 66433964 M23.92 Health Concerns Section Related Observation LastModified by Organization Detai ls LastModified Time None Recorded Concern Status LastModified by Organization Details LastModified Time None Recorded Advance Directives Directive None Recorded Payers Insurance Date Sequence Insurance Name Policy Number Policy Agrawal Covered Member ID Agrawal Member ID Guarantor Name 07/02/2024 1 [place] [facility] [place] [facility] Graham Kerr [id number] Graham Kerr 08/10/2024 1 [facility] [id number] Graham Kerr [id number] Graham Kerr
--- OUTSIDE RECORDS SUMMARY | 2024-10-27 18:09 | XMS_ITS | Patient Health Record ---
Author Organization [facility] Address [address] [place] [address] Care Team Providers Care Botany Teacher Name Role Phone Rajiv Howard Unavailable [phone] Reason For Referral No Information Medications Medication SIG (Take, Route, Frequency, Duration) Notes Start Date End Date Status DULoxetine HCl 60 MG Oral 06/28/2022 Active Sertraline HCl 100 MG Oral 06/28/2022 Active Baclofen 10 MG Oral 06/28/2022 Acti ve Levothyroxine Sodium 50 MCG Oral 06/28/2022 Active traMADol HCl 50 MG Oral 06/28/2022 Active Gabapentin 600 MG Oral 06/28/2022 A ctive Rosuvastatin Calcium 10 MG Oral 06/28/2022 Active Plan Of Treatment No Information Insurance Providers Payer Name Payer Address Payer Phone Subscriber Number Group Number Insured Name Patient Relationship to Insured Coverage Start Date Coverage End Date [facility] [address] [place] [address] [id number] LINO VILLA Self - patient is the insured Medical (General) History Surgical History Surgery Date(Month/Year) Procedure on eye (573976751) cross eyes repair Other Graft of skin to skin (844356503) 1997 Repair of ankle (758286473) 04/09/1997 Appendectomy (68520833) 04/09/2008 Operative procedure on knee (0811321) Repair of ulnar collateral l igament of metacarpophalangeal joint of thumb (338135710) 04/09/2013 Operative procedure on knee (7031274) Ureterorenoscopy with fragme ntation and removal of calculus of kidney (326422625) 04/09/2019 Appendectomy (56745) 05/22/2008
--- OUTSIDE RECORDS SUMMARY | 2024-10-27 18:09 | XMS_ITS | Encounter Summary ---
Author Organization [facility] Address [address] [place] [address] Phone Care Team Providers Care Saw Edge Fuser Circular Name Role Phone Kale Evans Primary Care Provider [phone] Last Flor MD Unavailable Doug Sims APRN, CNP Unavailable Reason for Visit * Reason Comments Medication Refill Encounter Details Date Type Department Care Team (Late st Contact Info) Description 03/05/2023 Refill [facility] [address] [place] [address] Doug Sims APRN, BED CONTROL SPECIALIST [address] [place] [address] Medication Refill Social History Tobacco Use Types Packs/Day Years Used Date Smoking Tobacco: Every Day Cigarettes 1 29.6 Started: 1995 Smokeless Tobacco: Never Comments:Pack a day until he quit for [...] suspected to have Coronavirus/COVID-19? No / Unsure 02/15/2023 3:33 PM TOP PRECIPITATOR OPERATOR documented as of this encounter Plan of Treatment Not on file documented as of this encounter Visit Diagnoses Diagnosis Urinary frequency Urinary urgency Urgency of urination documented in this encounter Additional Health Concerns Infection Onset Date Last Indicated Resolved Time COVID - 19 04/07/2023 04/07/2023 04/17/2023 12:1 6 AM TOP PRECIPITATOR OPERATOR documented as of this encounter Care Teams Saw Edge Fuser Circular Relationship Specialty Start Date End Date Kale Evans [address] [place] [address] PCP - General Family Medicine 10/30/21 Last Flor MD #[address] [address] Consulting Physician Colon and Rectal Surgery 11/08/21 Doug Sims APRN, BED CONTROL SPECIALIST [address] [place] [address] Nurse Practitioner Advanced Practice Nurse 03/05/23 documented as of this encounter
--- OUTSIDE RECORDS SUMMARY | 2024-10-27 18:09 | XMS_ITS | Continuity of Care Document ---
Author Organization [facility] Address [address] [place] [address] Phone Care Team Providers Care Mortgage Processing Clerk Name Role Phone Cj PT,MPT,ATC, Aldo Unavailable Unavai lable Procedures Procedure Date Therapeutic Activities Neuromuscular Re-Ed Therapeutic Exercise Therapeutic Activities Neuromuscular Re-Ed Therapeutic Exercise Therapeutic Activities Neuromuscular Re-Ed Therapeutic Exercise PT Evaluation Moderate Complexity Therapeutic Activities Neuromuscular Re-Ed Advance Directives Directive Yes / No Effective Date File Name No Information Encounters Encounter Description Practice Location Reason(s) For Visit Diagnoses Date Provider Providers Copied on Encounter [facility] [address], [place], [place], [id number], tel:[phone] [place] No Information 5 Cj Carlson. , [place], [place]. [facility], [place], [place], [address], tel:[phone] [place] No Information 5 Almita Lott. . Referring Provider: Graham Madsen, [address], [place], [address]. tel:[phone] [facility], [place], [place], [id number], tel:[phone] [place] No Information 6 5 Ohdavorshawn Oren. . Referring Provider: Graham Madsen, [address], [place], [address]. tel:[phone] [facility], [address], [id number], tel:[phone] [place] No Information 0 5 Ohdavorshawn Oren. . Referring Provider: Graham Madsen, [address], [place], [address]. tel:[phone] [facility] [address], [id number], tel:[phone] [place] No Information 0 5 [place], [place], . Referring Provider: Graham Madsen, [address], [place], [address]. tel:[phone] Family History Family Member Type Diagnosis Age At Onset No Information Payers Payer name Insurance type Covered alliance party ID Authorjose jarvis(s) [facility] CI [id number] Social History Type Description Quantity Date Captured Comments Sex Male Smoking Status No Information Chief Complaint And Reason For Visit No Information Reason For Referral Reason For Referral No Information History Of Present Illness Encounter Date Complaint History Of Prese nt Illness No Information Functional Status Date Functional Assessmen t No Information Instructions Date Instruction Additional Infor mation No Information Assessments Type Assessment Date No Information Patient Care Teams Name Effective Dates (start - stop) Status Members No Information
--- OUTSIDE RECORDS SUMMARY | 2024-10-27 18:09 | XMS_ITS | Encounter Summary ---
Author Organization [facility] Address [address] [place] [address] Phone Care Team Providers Care Scientific Manager Name Role Phone Kale Evans Primary Care Provider Last Flor MD Unavailable Doug Sims APRN, SOA ARCHITECT Unavailable [phone] Encounter Details Date Type Department Care Team (Late st Contact Info) Description 10/25/2023 Telephone [facility] [address] [place] [address] Andrew Potts MD [address] [address] Social History Tobacco Use Types Packs/Day Years Used Date Smoking Tobacco: Former Cigarettes 1 28.2 1 996 - 06/2023 Smokeless Tobacco: Never Comments:Pack a day until [...] on file Sexual Orientation Not on file documented as of this encounter Miscellaneous Notes * Telephone Encounter - Selena Lau - 10/25/2023 3:48 PM CDT Pt missed appt lvm stating to return call to office for rs, sent letter out. documented in this encounter Plan of Treatment Not on file documented as of this encounter Visit Diagnoses Not on filedocumented in this encounter Care Teams Scientific Manager Relationship Specialty Start Date End Date Kale Evans [address] [place] [address] PCP - General Family Medicine 10/30/21 Last Flor MD #[address] [address] Consulting Physician Colon and Rectal Surgery 11/08/21 Doug Sims APRN, SOA ARCHITECT [address] [place] [address] Nurse Practitioner Advanced Practice Nurse 03/05/23 documented as of this encounter
--- OUTSIDE RECORDS SUMMARY | 2024-10-27 18:09 | XMS_ITS | Continuity of Care Document ---
Author Organization [facility] Address [address] [place] [address] [place] [address] Phone Care Team Providers Care Helpdesk Administrator Name Role Phone Kale Evans MD Unavailable Unavailable Allergies, Adverse Reactions, Alerts Substance Reaction Status Criticality No Known Allergies Active No Inform ation Medications Medication Instructions Dosage Effective Dates (start - stop) Status Comments tramadol 50 mg tablet take 1 tablet by oral route every 6 hours as needed as needed 50 MG - Active PRN for pain, avoid driving or operate machines ibuprofen 800 mg tablet take 1 tablet by oral route every 6 - 8 hours with food as needed 800 MG - Active PRN for pain Crestor 10 mg tablet take 1 tablet by oral route every day 10 MG - Active Trelegy Ellipta 100 mcg-62.5 mcg-25 mcg powder for inhalation inhale 1 puff by inhalation route every day at the same time each day 1.00 puff - Active Zoloft 100 mg tablet take 1 tablet by oral route every day 100 MG - Active Synthroid 50 mcg tablet take 1 tablet by oral route every day 50 MCG - Active Neurontin 600 mg tablet take 1 tablet by oral route 3 times every day 600 MG - Active avoid driving or operate machines baclofen 10 mg tablet take 1 tablet by oral route 2 times every day as needed 10 MG - Active avoid drivin g or operate machines, PRn for muscle spasm Ventolin HFA 90 mcg/actuation aerosol inhaler inhale 2 puff by inhalation route every 4 - 6 hours as needed as needed - Active PRN for sob Procedures Procedure Date OFFICE/OUTPATIENT VISIT, EST OFFICE/OUTPATIENT VISIT, EST OFFICE/OUTPATIENT VISIT, EST OFFICE/OUTPATIENT VISIT, EST OFFICE/OUTPATIENT VISIT, EST OFFICE/OUTPATIENT VISIT, EST PREV VISIT, EST, AGE 40-64 OFFICE/OUTPATIENT VISIT, EST OFFICE/OUTPATIENT VISIT, EST OFFICE/OUTPATIENT VISIT, EST OFFICE/OUTPATIENT VISIT, EST OFFICE/OUTPATIENT VISIT, EST OFFICE/OUTPATIENT VISIT, EST OFFICE/OUTPATIENT VISIT, EST OFFICE/OUTPATIENT VISIT, EST OFFICE/OUTPATIENT VISIT, EST OFFICE/OUTPATIENT VISIT, EST PREV VISIT, EST, AGE 18-39 OFFICE/OUTPATIENT VISIT, EST OFFICE/OUTPATIENT VISIT, EST OFFICE/OUTPATIENT VISIT, EST OFFICE/OUTPATIENT VISIT, EST OFFICE/OUTPATIENT VISIT, EST PREV VISIT, NEW, AGE 18-39 Advance Directives Directive Yes / No Effective Date File Name No Information Encounters Encounter Description Practice Location Reason(s) For Visit Diagnoses Date Provider Providers Copied on Encounter [facility], [address], [place], [address], tel:[phone] [facility] No Information 5 Nathan Henley. [address], [place], [address] , [place]. tel:[phone] OFFICE/OUTPA TIENT VISIT, EST [facility], [address], [place], [address], tel:[phone] [facility] thyroid1 (chief complaint)H LP (chief complaint)p ain (chief complaint)a nxiety1 (chief complaint) Mixed hyperlipidemiaGene ralized Anxiety DisorderHashimoto' s thyroiditisChronic pain syndromeIron deficiency anemia 5 Nathan Henley. [address], [place], [place], [address] , [place]. tel:[phone] OFFICE/OUTPA TIENT VISIT, [facility], [address], [place], [place], [address], [place] tel:[phone] [facility] asthma1 (chief complaint)p ain (chief complaint)i atul (chief complaint)k nee pain1 (chief complaint) Centrilobular emphysemaChronic pain syndromePain in left kneeIron deficiency anemia 5 Nathan Henley. [address], [place], [place], [address] , [place]. tel:[phone] OFFICE/OUTPA TIENT VISIT, [facility], [address], [place], [place], [address], [place] tel:[phone] [facility] COPD1 (chief complaint)p ain (chief complaint)H LP (chief complaint) Centrilobular emphysemaChronic pain syndromeMixed hyperlipidemiaAcut e bronchitis 4 Nathan Henley. [address], [place], [place], [address] , [place]. tel:[phone] OFFICE/OUTPA TIENT VISIT, [facility], [address], [place], [place], [address], [place] tel:[phone] [facility] COPD1 (chief complaint)h ashimoto1 (chief complaint)a nxiety1 (chief complaint) Generalized Anxiety DisorderCentrilobu lar emphysemaChronic pain syndromeHashimoto' s thyroiditis 4 Nathan Henley. [address], [place], [place], [address] , [place]. tel:[phone] OFFICE/OUTPA TIENT VISIT, [facility], [address], [place], [place], [address], [place] tel:[phone] [facility] sick (chief complaint)C OPD1 (chief complaint) Centrilobular emphysemaAcute bronchitis 4 Nathan Henley. [address], [place], [place], [address] , [place]. tel:[phone] OFFICE/OUTPA TIENT VISIT, EST [facility], [address], [place], [place], [address], [place] tel:[phone] [facility] COPD1 (chief complaint)b ack pain1 (chief complaint)c olon polyp1 (chief complaint) Centrilobular emphysemaPolyp of colonChronic pain syndrome 4 Nathan Henley. [address], [place], [place], [address] , [place]. tel:[phone] PREV VISIT, EST, AGE 40-64 [facility], [address], [place], [place], [address], [place] tel:[phone] [facility] physical (chief complaint) Encounter for general adult medical examination without abnormal findings 4 Nathan Henley. [address], [place], [place], [address] , [place]. tel:[phone] OFFICE/OUTPA TIENT VISIT, EST [facility], [address], [place], [address], [place] tel:[phone] [facility] kcl (chief complaint)h ematuria1 (chief complaint)a nemia1 (chief complaint)C OPD1 (chief complaint) Asymptomatic microscopic hematuriaIron deficiency anemiaHypokalemiaE dimitrios of scrotumCentrilobul ar emphysema 4 Nathan Henley. [address], [place], [place], [address] , [place]. tel:[phone] OFFICE/OUTPA TIENT VISIT, EST [facility], [address], [place], [place], [address], [place] tel:[phone] [facility] joint pain1 (chief complaint)i atul deficiency1 (chief complaint)l ow kcl (chief complaint)f olate (chief complaint)h epatospleno megaly1 (chief complaint) Iron deficiencyHepatome tory w/ splenomegalyPain in jointHypokalemiaFo late deficiencyAsymptom atic microscopic hematuriaGeneraliz ed Anxiety Disorder 4 Nathan Vivas [address], [place], [place], [address] , [place]. tel:[phone] OFFICE/OUTPA TIENT VISIT, [facility], [address], [place], [place], [address], [place] tel:[phone] [facility] physical (chief complaint)H LP (chief complaint)w eight loss1 (chief complaint)p ain1 (chief complaint)t esticular pain1 (chief complaint) Night sweatsChronic pain syndromeCyst of epididymisMixed hyperlipidemiaPain in jointAbnormal weight lossHepatomegaly w/ splenomegaly Mar- 3 Nathan Vivas [address], [place], [place], [address] , [place]. tel:[phone] OFFICE/OUTPA TIENT VISIT, [facility], [address], [place], [place], [address], [place] tel:[phone] [facility] hashimoto1 (chief complaint)p ain (chief complaint)t esticular pain1 (chief complaint)u mbilical hernia1 (chief complaint) Chronic pain syndromeHashimoto' s thyroiditisUmbilic al herniaCyst of epididymis 3 Nathan Vivas [address], [place], [place], [address] , [place]. tel:[phone] OFFICE/OUTPA TIENT VISIT, [facility], [address], [address], [place] tel:[phone] [facility] epididymal (chief complaint)p ain (chief complaint)a nxiety1 (chief complaint) Generalized Anxiety DisorderCyst of epididymisChronic pain syndrome 3 Nathan Vivas [address], [place], [place], [address] , [place]. tel:[phone] OFFICE/OUTPA TIENT VISIT, [facility], [address], [place], [place], [address], [place] tel:[phone] [facility] hashimoto1 (chief complaint)T b (chief complaint)T B1 (chief complaint) Encounter for screening for respiratory TBHashimoto's thyroiditis 3 Nathan Henley. [address], [place], [place], [address] , [place]. tel:[phone] OFFICE/OUTPA TIENT VISIT, [facility], [address], [place], [place], [address], [place] tel:[phone] [facility] HLP (chief complaint)c yst1 (chief complaint)a nxiety1 (chief complaint)p ain (chief complaint)l eukocytosis 1 (chief complaint) Mixed hyperlipidemiaLeuk ocytosisCyst of epididymisLiver diseaseChronic pain syndromeGeneralize d Anxiety Disorder 3 Nathan Vivas [address], [place], [place], [address] , [place]. tel:[phone] OFFICE/OUTPA TIENT VISIT, [facility], [address], [place], [place], [address], [place] tel:[phone] [facility] palpitation 1 (chief complaint)a nxiety1 (chief complaint)n europathy1 (chief complaint) PalpitationsChroni c pain syndromeGeneralize d Anxiety Disorder 3 Nathan Vivas [address], [place], [address] , [place]. tel:[phone] OFFICE/OUTPA TIENT VISIT, [facility], [address], [address], [place] tel:[phone] [facility] leukocytosi s1 (chief complaint)H LP (chief complaint)L FT (chief complaint)t esticular pain1 (chief complaint)p alpitatoin1 (chief complaint)a nxiety1 (chief complaint) LeukocytosisLiver diseaseMixed hyperlipidemiaDiso rder of iron metabolism, unspecifiedCyst of epididymisDepressi onPalpitations 2 Nathan Henley. [address], [place], [place], [address] , [place]. tel:[phone] OFFICE/OUTPA TIENT VISIT, EST [facility], [address], [place], [place], [address], [place] tel:[phone] [facility] testicular pain1 (chief complaint)a nemia1 (chief complaint)p alpitation1 (chief complaint)t hyroid1 (chief complaint)a nxiety1 (chief complaint)p ain (chief complaint) PalpitationsCyst of epididymisMixed hyperlipidemiaLeuk ocytosisDepression AnemiaDisorder of iron metabolism, unspecifiedHashimo to's thyroiditisChronic pain syndrome 2 Nathan Vivas [address], [place], [place], [address] , [place]. tel:[phone] PREV VISIT, EST, AGE 18-39 [facility], [address], [place], [place], [address], [place] tel:[phone] [facility] anemia1 (chief complaint)u mbilical hernia1 (chief complaint)t esticular pain1 (chief complaint)a nxiety1 (chief complaint)b ack pain1 (chief complaint) Encounter for general adult medical examination without abnormal findings 2 Nathan Henley. [address], [place], [place], [address] , [place]. tel:[phone] OFFICE/OUTPA TIENT VISIT, EST [facility], [address], [place], [address], [place] tel:[phone] [facility] anxiety1 (chief complaint)l eg pain1 (chief complaint) Muscle atrophy of lt lower legNeuropathyDepre ssion 2 Nathan Henley. [address], [place], [place], [address] , [place]. tel:[phone] OFFICE/OUTPA TIENT VISIT, EST [facility], [address], [place], [place], [address], [place] tel:[phone] [facility] depression1 (chief complaint)l eg pain1 (chief complaint) DepressionNeuropat hyMuscle atrophy of lt lower legMeningitis, unspecified Fe 2 Nathan Henley. [address], [place], [place], [address] , [place]. tel:[phone] OFFICE/OUTPA TIENT VISIT, [facility], [address], [address], [place] tel:[phone] [facility] sick (chief complaint) Viral infection 1 Nathan Henley. [address], [place], [place], [address] , [place]. [phone] OFFICE/OUTPA TIENT VISIT, [facility], [address], [address], [place] tel:[phone] [facility] pain (chief complaint)t hyroid1 (chief complaint)a nxiety1 (chief complaint)f dorinda nodule1 (chief complaint) Chronic pain syndromeGeneralize d Anxiety DisorderHashimoto' s thyroiditisOther specified mononeuropathies of unspecified lower limbLocalized swelling, mass and lump, unspecified upper limb 1 Nathan Henley. [address], [place], [place], [address] , [place]. tel:[phone] OFFICE/OUTPA TIENT VISIT, [facility], [address], [place], [place], [address], [place] tel:[phone] [facility] pain (chief complaint)l os folate1 (chief complaint)t hyroid (chief complaint) HypothyroidismFola te deficiencyChronic pain syndromeGeneralize d Anxiety Disorder 1 Nathan Henley. [address], [place], [place], [address] , [place]. [phone] PREV VISIT, NEW, AGE 18-39 [facility], [address], [place], [place], [address], tel:[phone] [facility] physical (chief complaint) Encounter for general adult medical examination without abnormal findings [address], [place], [place], [address] , . tel:[phone] Family History Family Member Type Diagnosis Age At Onset Father Problem Coronary artery disease 58 Sister Problem Diabetes mellitus Mother Problem Diabetes mellitus Father Problem lung CA from tobacco Paternal uncle Problem thyroid CA Payers Payer name Insurance type Covered democrat ID Authorrandalla tijanice(s) [facility] [id number] Social History Type Description Quantity Date Captured Comments Sex Male Smoking Status No Information Chief Complaint And Reason For Visit No Information Plan Of Treatment Date Type Action Status Referral Ordered: CALVIN BRAR -[facility] : Orthopaedic Surgery (related to Pain in left knee) ordered Referral Referred To: CALVIN BRAR [address], [place], [id number] Ordered: Referrals: [facility]opathic Phys[facility] : Orthopaedic Surgery. CALVIN BRAR. Evaluate and treat ordered Referral Ordered: Dinesh Harris -[facility] : Internal Medicine : Gastroenterology (related to Hepatomegaly w/ splenomegaly) ordered Referral Ordered: CHEST X-RAY PA/LAT TWO-VIEWS ordered Referral Referred To: Dinesh Harris [address], [place], [id number] Ordered: Referrals: [facility] : Internal Medicine : Gastroenterology. Dinesh Harris. Evaluate and treat ordered Referral Ordered: Gaston Holly -[facility] : Urology (related to Cyst of epididymis) ordered Referral Referred To: Gaston Holly [address]
[facility] [address] [place], [place], [phone] Ordered: Referrals: [facility]opathic [facility] Osteopathic Physicians : Urology. Gaston Holly. Evaluate and treat ordered Referral Ordered: Hematology (related to Leukocytosis) ordered Referral Ordered: Referrals: Hematology. Evaluate and treat ordered Referral Ordered: Cardiology (related to Palpitations) ordered Referral Ordered: Referrals: Cardiology. Evaluate and treat ordered Referral Ordered: Urology (related to Encounter for general adult medical examination without abnormal findings) ordered Referral Referred To: Rajiv Howard MD [address] [place], [place], [address] Ordered: Referrals: Rajiv Howard MD Evaluate and treat ordered Referral Ordered: Referrals: Urology. Evaluate and treat ordered Referral Ordered: MOTOR NERVE CONDUCTION TEST ordered Referral Referred To: Gracy HUTTON, Fab Garcia [address] [facility]
[address] [place], [place], [address] Ordered: Referrals: Fab Dubose MD. Evaluate and treat ordered Referral Ordered: US THYROID ordered History Of Present Illness Encounter Date Complaint History Of Prese nt Illness thyroid1 Pt has fernanda . Pt takes synthroid Pt denies any dysphagia or neck pain pain Pt c/o chronic l ow back pain with left leg sciatica and neuropathy symptoms Pt takes ultram, baclofen and neurontin and doing ok Pt denies any loss of bowel or bladder control or saddle area paresthesia. He only takes neurontin once per day HLP Pt has HLP Pt lesvia betancourt .Pt denies any myalgia anxiety1 Pt has chronic a nxiety and depression Pt takes zoloft and doing ok Pt denies any suicidal or homicidal thought Pt denies any crying spells asthma1 pt has overlappi ng asthma and COPD. Pt no longer smoking Pt is on trelegy and airsupra now and he sees pulmonary now and he will start dupixent pain Pt c/o chronic l ow back pain with left leg sciatica and neuropathy symptoms Pt takes ultram, baclofen and neurontin and doing ok Pt denies any loss of bowel or bladder control or saddle area paresthesia. He only takes neurontin once per day iron Pt has history o f iron deficiency anemia and he is on folic acid by hematology. Pt had lab done by hematology 6 months ago and he was told lab ok. Pt denies any GI symptoms knee pain1 Pt has chronic r ight knee pain due to meniscus injury and he c/o persistent left knee pain for a while Pt denies any injury, Pt notices frequent left knee popping Pt denies any swelling or redness or warmth COPD1 Pt has emphysema Pt feels chronic sob Pt still smokes here and there. Pt saw pulmonary recently and had chest CT and PFT done and he is on trelegy and was started on airsupra. Pt states that he breaths ok but still feels some sob. He c/o acute onset of productive cough for several days with worsening sob and wheezing sometimes. HLP Pt has HLP he ta norm crestor and doing ok Pt denies any myalgia pain Pt c/o chronic l ow back pain with left leg sciatica and neuropathy symptoms Pt takes ultram, baclofen and neurontin and doing ok Pt denies any loss of bowel or bladder control or saddle area paresthesia. He only takes neurontin once per day COPD Pt has COPD .Pt is seeing pulmonary and he is on Trelegy now and he is doing ok Pt denies any hemoptysis. Pt will do PFT soon and chest CT soon hashimoto1 Pt has fernanda pt denies any dysphagia or neck pain Pt takes synthroid Pt needs refilled . anxiety1 Pt has chronic a nxiety and depression Pt takes zoloft and doing ok Pt denies any suicidal or homicidal thought Pt denies any crying spells COPD1 Pt has COPD Pt i s on breztri inhaler and he notices slightly improvement of his daily sob Pt has robert with pulmonal next month. Pt uses albuterol PRn. sick Pt c/o acute ons et of productive cough with green phlegm sore throat, sinus congestion, overall fatigue and malaise x 7 days Pt denies any fever pt tested negative for COVID. his has similar symptoms and got better with abx and steroid. Pt feels sob. colon polyp1 Pt has colon armida yp, which is tubular adenoma Pt denies any lower Gi issue back pain1 Pt c/o chronic l ow back pain with left leg sciatica and neuropathy symptoms Pt takes ultram, baclofen and neurontin and doing ok Pt denies any loss of bowel or bladder control or saddle area paresthesia COPD1 Pt has rather se joshua COPD from history of smoking. Pt has robert with pulmonary in 3 weeks. Pt does feel frequent sob, especially with physical exertion. Pt denies any hemoptysis, cough physical Pt needs annual physical pt has chronic low back pain with left sciatica and left leg muscle atrophy and pain due to history of meningitis infection. Pt takes neurontin, baclofen and ultram PRn for pain and doing ok Pt denies any loss of bowel or bladder control or saddle area paresthesia. Pt has HLP ,Pt takes crestor Pt denies any myalgia. Pt has chronic anxiety and depression Pt takes zoloft and doing ok Pt denies any suicidal or homicidal thought Pt denies any crying spells Pt has fernanda, Pt takes synthroid ,Pt denies any dysphagia or neck pain Pt has mild anemia with high MCV Pt is seeing hematology and he is getting folate supplement Pt has COPD due to smoking Pt did quit smoking two weeks ago Pt could not tolerate wellbutrin COPD1 Pt had chest CT done by hematology which showed ILD with COPD Pt does feels sob occasionally. Pt denies any hemoptysis Pt is a smoker. anemia1 Pt has mild anem ia. his iron was low but repeat iron and ferritin were ok by hematology Pt does have low folate and he is on folate supplement now by hematology. His international sourcing manager is considering bone marrow biopsy soon. He denies any bleeding hematuria1 pt has history o f hematuria pt denies any urinary symptoms .Repeat UA was clear of any blood. Pt is s/p left testicle removal due to mass by urology recently and he is in rather severe pain post op and his urologist did not give him any pain meds He states that ultram is not helping with pain. kcl Pt has history o f low kcl Pt had repeat lab done and his kcl as well as mag are normal. iron deficiency1 Pt has iron def iciency .Pt is not anemic. Pt had negative EGD and colonoscopy .Pt does have tubular adenoma low kcl Pt has low kcl. Pt denies any diarrhea or vomiting Pt denies any chest pain. folate Pth as low folat e Pt sees hematology and he is on folate acid supplement now. hepatosplenomegaly1 Pt has hepat osplenomegaly .Pt has negative RPR, CMV and he does have positive EBV IgG. His HIV is negative. joint pain1 Pt has diffuse j oint pain including knee, hip, shoulder, etc Pt denies any joint swelling or redness or warmth. Pt had negative connective tissue panel. physical Pt c/o night swe at x two weeks with dry cough. pt denies any sob. Pt denies any hemoptysis. 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 HLP Pt has HLP. Pt h as not had crestor for several months due to pharmacy issue. his crestor was canceled for unknown reason .Pt denies any myalgia weight loss1 Pt has been losi ng weight unintentionally for the past 6 months ,Pt lost 20 pounds .Pt states that he feels early satiety with poor appetite. Pt denies any GERD. Pt denies any nausea, vomiting. Pt notices some non-bloody diarrhea and constipation as well. Pt denies any polly abdominal pain. pain1 Pt c/o diffuse j oint pain as well as bone pain for the past several months Pt has hard time describing his symptoms. he just states that his bone hurts all over. 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 Pt states that ultram is not helping his pain anymore. he also takes neurontin as well. Pt denies any loss of bowel or bladder control or saddle area paresthesia testicular pain1 Pt has chronic left testicular enlargement with pain Pt has hematuria. Pt has some urinary urgency and frequency. His urology ordered a CT renal protocol which showed no renal stone but he does have diffuse urinary bladder wall thickening with hepatosplenomegaly. he tried vesicare but did not help Pt will have scrotum ultrasound and left orchiectomy soon by urology. hashimoto1 Pt has fernanda Pt denies any dysphagia or neck pain. Pt needs synthroid refilled. pain Pt has back pain and left leg neuropathy Pt takes baclofen and neurontin and doing ok Pt also takes ultram PRn for pain and he is doing ok Pt needs refill . testicular pain1 Pt has left epi didymal cyst with varicocele with chronic pain around left epididymal cyst area Pt saw urologist who told him that it is not big enough for surgical removal. pt denies any redness or warmth Pt states that he wants 2nd opinion from another urologist. Pt denies any acute pain. Pt has robert with [facility] next week umbilical hernia1 Pt has acute r ecurring umbilical hernia since last week Pt had umbilical hernia last year but it recurred Pt denies any nausea, vomiting Pt saw surgeon and will have surgery tomorrow. epididymal Pt has left epid idymal cyst with varicocele with chronic pain around left epididymal cyst area Pt saw urologist who told him that it is not big enough for surgical removal. pt denies any redness or warmth Pt states that he wants 2nd opinion from another urologist. Pt denies any acute pain. pain Pt has back pain and left leg neuropathy Pt takes baclofen and neurontin and doing ok Pt needs refill. Pt also takes ultram PRn for pain and he is doing ok Pt needs refill . anxiety1 Pt has chronic a nxiety and depression Pt takes zoloft and doing ok pt denies any suicidal or homicidal thought Pt denies any crying spells. Pt is doing counseling as well hashimoto1 Pt has fernanda Pt denies any dysphagia or neck pain Pt takes synthroid and doing ok Tb TB1 Pt is adopting a child and he needs physical form completed Pt needs TB screening Pt denies any night sweat, cough, fever, weight loss, chill, or recent travel Apr-12-2023 leukocytosis1 Pt has chronic l eukocytosis. Pt denies any fever ,Pt saw hematology and had lab done and was told that it is due to smoking. pain Pt has back pain and left leg neuropathy Pt takes baclofen and neurontin and doing ok Pt needs refill. Pt also takes ultram PRn anxiety1 Pt has chronic a nxiety and depression with PTSD Pt saw psychiatrist who told him to continue zoloft for now he is off lamictal and he is doing better in terms of his mood with zoloft and counseling Pt denies any suicidal or homicidal thought cyst1 pt has left epid idymal cyst and some hydrocele and varicocele. Pt went back to see urology and will get it removed pt had to reschedule surgery due to personal issue ,Pt has mild pain sometimes Pt denies any injury, redness, warmth Pt denies any acute pain Pt states that the cyst is getting bigger HLP Pt has HLP Pt lesvia betancourt Pt denies any myalgia. his lipid profile is ok with crestor ,Pt denies any myalgia palpitation1 Pt has intermitt ent palpitation Pt denies any chest pain or sob. Pt saw cardiology and he had negative cardiac echo and holter. he has robert with cardiology soon neuropathy1 Pt has back pain and left leg neuropathy Pt takes baclofen and neurontin and doing ok Pt needs refill anxiety1 Pt has chronic a nxiety and depression Pt has mood swings and angry issue. Pt has frequent outburst. pt denies any delusional disorder pt states that lamictal helped him slightly Pt is on zoloft Pt has robert with psychiatry in 4 days. Pt denies any suicidal or homicidal thought Pt denies any crying spells . anxiety1 Pt has chronic a nxiety and depression Pt has anger issue with mood swings. Pt is on zoloft. Pt has robert with psychiatrist in 3 weeks. Pt denies any suicidal or homicidal thought .Pt denies any crying spells palpitatoin1 Pt has not had a ny palpitation for a while Pt denies any chest pain Pt has robert with cardiology next week. testicular pain1 Pt has chronic left testicular pain. Pt has epididymal cyst and hydrocele. He states that he saw urology but was told nothing can be done for his discomfort. Pt is kind of frustrated with urology. He actually had ultrasound done and he was told by urology office nurses. leukocytosis1 Pt has persisten t leukocytosis Pt denies any fever, chill or illness. His iron saturation normalized. HLP Pt takes crestor and his lipid profile is ok now Pt denies any myalgia LFT Pt has mildly hi gh LFT Pt denies any abd pain or jaundice. testicular pain1 Pt has chronic left scrotum pain and swelling. Pt has history of varicose veins surgery. Pt had ultrasound done which showed left epididymal cyst and bilateral hydrocele and varicocele. Pt is seeing urology now. anemia1 Pt has history o f mild anemia and high MCV Pt rarely drinks alcohol. Pt had repeat lab done and anemia resolve. His MCV is normal, He does have borderline high iron saturation. He has mild leukocytosis. pt denies any fever, or illness palpitation1 Pt has frequent chest palpitation. His heart rate change from 60s-180s. Pt states that sometimes his smart watch shows that his HR is around 180 while resting. Pt denies any chest pain Pt denies any sob thyroid1 Pt has hypothyro idism. Pt takes 50 mcg synthroid. his TSh is ok. Pt denies any dysphagia or neck pain anxiety1 Pt has chronic a nxiety and depression ,Pt is on zoloft. He denies any suicidal or homicidal thought. His states that he has anger issue. Pt has hard time controlling his emotions, He also feels depressed as well. He never made robert with psychiatrist. pain Pt has chronic l ow back pain with left sciatica and left leg neuropathy. Pt denies any loss of bowel or bladder control or saddle area paresthesia Pt takes neurontin, baclofen and ultram. Pt wants higher dose of ultram back pain1 Pt has chronic l ow back pain with left leg pain with neuropathy and muscle spasm. Pt has history of mentis anemia1 Pt has mild anem ia and high MCV and high glucose on lab from hospital recently. Pt denies any blood loss. Pt denies any polyuria, polydipsia. umbilical hernia1 Pt recently lau d acute incarceration of umbilical hernia s/p surgery on 10/31/21 .Pt presented to hospital for acute nausea, vomiting, abdominal pain, bulge around umbilical area and he was found to have incarcerated umbilical hernia s/p emergency repair. Pt doing ok post op. Pt denies any nausea, vomiting Pt is passing gas. Pt denies any drainage anxiety1 Pt has chronic a nxiety and depression and he has anger issue. Pt denies any suicidal or homicidal thought .Pt denies any crying spells .Pt has been having worsening anger issue. Pt states that cymbalta does not help and he wants to go back to [facility] again. testicular pain1 Pt c/o left darrel ticular and left scrotum pain and swelling and lump for several years. Pt had left varicocele surgery done 3 years ago and he felt better for a while but the discomfort is back for the past 2 years. Pt c/o persistent left testicular pain and swelling and he notices the lump above left testicle. Pt denies any redness or warmth or injury. Pt denies any worsening pain. Pt denies any urinary symptoms leg pain1 Pt has history o f spinal meningitis with severe left leg muscle pain and atrophy. Pt states that he feels that his left foot drop sometimes and he frequently trips on left foot. He feels left leg tingling with left leg muscle spasm and pain with alivia horses left leg. Pt denies any loss of bowel or bladder control Pt denies any saddle area paresthesia. pt denies any calf swelling or pain Pt denies any chest pain or sob. Pt denies any recent travel or bedrest. 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 Pt states that cymbalta does help in addition to neurontin, baclofen and ultram PRN anxiety1 Pt has chronic a nxiety and depression . Pt started cymbalta last month and he thinks it is helping his mood as well as neuropathy symptoms. Pt denies any side effects Pt denies any suicidal or homicidal thought. Pt denies any crying spells leg pain1 Pt has history o f spinal meningitis with severe left leg muscle pain and atrophy. Pt states that he feels that his left foot drop sometimes and he frequently trips on left foot. He feels left leg tingling with left leg muscle spasm and pain with alivia horses left leg. Pt denies any loss of bowel or bladder control Pt denies any saddle area paresthesia. pt denies any calf swelling or pain Pt denies any chest pain or sob. Pt denies any recent travel or bedrest depression1 Pt has chronic a nxiety and depression Pt stopped zoloft recently on his own after feeling better but lately he feels more depressed again Pt has anger issue and mood swings Pt feels very irritable and lack of interests and he has no motivation to do anything he just feels sad all the time . Pt denies any suicidal or homicidal thought Pt denies any crying spells sick Pt c/o acute ons et of sore throat, sinus congestion, productive coughing with green phlegm, chest congestion, mild sob since 4 days ago. Pt denies any loss of taste and smell or fever or any GI symptoms. Pt c/o mild ear ache as well Pt feels overall weak Pt did not go to work today. Pt is trying OTC meds but not helping much anxiety1 Pt has mild anxi ety and depression Pt was taking zoloft but he weaned off zoloft recently on his own. Pt states that he does not want to depend on zoloft to feel better. his mood has been ok Pt denies any suicidal or homicidal thought Pt denies any crying spells pain Pt has history o f spinal meningitis back in 2002 and he was in ICU x 3 weeks and he since developed left leg numbness and tingling with left upper thigh and calf atrophy. Pt also has chronic low back pain with left sciatica. Pt denies any loss of bowel or bladder control. Pt has chronic left leg paresthesia with severe spasm and cramp. pt denies any loss of bladder control. Pt denies any saddle area paresthesia. Pt had NCS done 5 years ago which showed left sciatica nerve issue. He had MRI of L spine done which showed L4-5 facet arthropathy with foraminal narrowing. Pt takes ultram and Neurontin and baclofen and doing ok Pt needs refill. Pt only takes above meds PRn and he wants to wean off above meds . finger nodule1 Pt has a swellin g and tender nodule right lateral 5th finger for 4 years, but getting bigger recently pt notices mild pain but no redness or warmth. Pt also c/o right thumb, index and middle finger numbness and tingling. Pt notices occasional right hand weakness Pt is a diesel mechani thyroid1 Pt has fernanda thyroid disease Pt denies any dysphagia or neck pain. Pt has been out of synthroid for one week and feels fatigue. Thyroid ultrasound confirmed fernanda disease los folate1 Pt has low folat e. Pt does not eat a lot of green vegetable thyroid Pt has hypothyro idism. Pt takes synthroid. His TSH is ok but TPO is high. Pt denies any dysphagia or neck pain pain Pt has history o f spinal meningitis back in 2002 and he was in ICU x 3 weeks and he since developed left leg numbness and tingling with left upper thigh and calf atrophy. Pt also has chronic low back pain with left sciatica. Pt denies any loss of bowel or bladder control. Pt has chronic left leg paresthesia with severe spasm and cramp. pt denies any loss of bladder control. Pt denies any saddle area paresthesia. Pt had NCS done 5 years ago which showed left sciatica nerve issue. He had MRI of L spine done which showed L4-5 facet arthropathy with foraminal narrowing. Pt takes ultram and Neurontin and baclofen and doing ok Pt needs refill physical Pt needs annual physical Pt has history of spinal meningitis back in 2002 and he was in ICU x 3 weeks and he since developed left leg numbness and tingling with left upper thigh and calf atrophy. Pt also has chronic low back pain with left sciatica. Pt denies any loss of bowel or bladder control. Pt has chronic left leg paresthesia with severe spasm and cramp. pt denies any loss of bladder control. Pt denies any saddle area paresthesia. Pt had NCS done 5 years ago which showed left sciatica nerve issue. He had MRI of L spine done which showed L4-5 facet arthropathy with foraminal narrowing. MRI of robin showed no acute finding. He does have chronic migraine as well. pt moved here from [place] one year ago. he used to take ultram and neurontin and also baclofen but has not had above for long time. Pt also has chronic anxiety and depression Pt takes zoloft and doing ok Pt denies any suicidal or homicidal thought Pt denies any crying spells. pt also has chronic hypothyroidism. Pt takes synthroid. Pt denies any dysphagia or neck pain. Instructions Date Instruction Additional Infor lilli No Information Assessments Type Assessment Date No Information
[2024-10-27 18:20] VITALS: BP 139/74; PULSE 74; RESP 16; TEMP 36.4; O2SAT 98
--- OUTSIDE RECORDS SUMMARY | 2024-10-27 20:06 | XMS_ITS | Encounter Summary ---
Author Organization [facility] Address [address] [place] [address] Phone Care Team Providers Care Fractionating Still Operator Name Role Phone Kale Evans Primary Care Provider [phone] Last Flor MD Unavailable Doug Sims APRN, CNP Unavailable [phone] Reason for Visit * Reason Comments Medication Refill Encounter Details Date Type Department Care Team (Late st Contact Info) Description 03/05/2023 Refill [facility] [address] [place] [address] Doug Sims APRN, COMMERCIAL ENERGY RATER [address] [place] [address] Medication Refill Social History Tobacco Use Types [...] Coronavirus/COVID-19? No / Unsure 02/15/2023 3:33 PM BLUE LEATHER SETTER documented as of this encounter Plan of Treatment Not on file documented as of this encounter Visit Diagnoses Diagnosis Urinary frequency Urinary urgency Urgency of urination documented in this encounter Additional Health Concerns Infection Onset Date Last Indicated Resolved Time COVID - 19 04/07/2023 04/07/2023 04/17/2023 12:1 6 AM BLUE LEATHER SETTER documented as of this encounter Care Teams Fractionating Still Operator Relationship Specialty Start Date End Date Kale Evans [address] [place] [address] PCP - General Family Medicine 10/30/21 Last Flor MD [address] [address] Consulting Physician Colon and Rectal Surgery 11/08/21 Doug Sims APRN, COMMERCIAL ENERGY RATER [address] [place] [address] Nurse Practitioner Advanced Practice Nurse 03/05/23 documented as of this encounter
--- OUTSIDE RECORDS SUMMARY | 2024-10-27 20:06 | XMS_ITS | Encounter Summary ---
Author Organization [facility] Address Formerly [facility] [place] [address] Care Team Providers Care Row Boss Hoeing Name Role Phone Kale Evans MD Primary Care Provider [phone] Encounter Details Date Type Department Care Team (Late st Contact Info) Description 03/07/2022 Abstract [facility] [address] [address] Shreyas Jo MA Social History Tobacco Use [...] Coronavirus/COVID-19? No / Unsure 03/06/2022 9:39 AM FURNACE ERECTOR documented as of this encounter Plan of Treatment Not on file documented as of this encounter Procedures Procedure Name Priority Date/Time Associated Diagnosis Comments CBC (OUTSIDE LAB) Routine 02/04/2022 LIPID PANEL Routine 02/04/2022 HEPATIC FUNCTION PANEL Routine 02/04/2022 THYROID STIM HORMONE TSH Routine 02/02/2022 documented in this encounter Results * LIPID PANEL (02/04/2022) Pathologist [facility] CHOLESTEROL 143 HDL 39 TRIGLYCERIDES 117 NON HDL CHOLESTEROL 104 LDL (CALCULATED) 83 02/04/2022 us Default History Genericprovider LABORATORY Final Result * HEPATIC FUNCTION PANEL (02/04/2022) Pathologist [facility] ALBUMIN S/P/B 4.7 3.5 - 5.0 ALKALINE PHOSPHATASE S/P/B 100 ALT 50 AST 35 BILIRUBIN DIRECT S/P/B 0.1 BILIRUBIN TOTAL S/P/B 0.6 TOTAL PROTEIN S/P/B 6.9 GLOBULIN 2.2 02/04/2022 us Default History Genericprovider LABORATORY Final Result * CBC (OUTSIDE LAB) (02/04/2022) Pathologist [facility] WBC 15.9 HGB 14.7 HCT 44.3 PLT 296 02/04/2022 us Default History Genericprovider LAB-OUTSIDE/ABST RACTED Final Result * THYROID STIM HORMONE, TSH (02/02/2022) Pathologist [facility] TSH 1.83 02/02/2022 us Default History Genericprovider LABORATORY Final Result documented in this encounter Visit Diagnoses Not on filedocumented in this encounter Care Teams Row Boss Hoeing Relationship Specialty Start Date End Date Kale Evans MD [address] [place] [address] PCP - General FAMILY PRACTICE 02/08/22 documented as of this encounter
--- OUTSIDE RECORDS SUMMARY | 2024-10-27 20:07 | XMS_ITS | Clinical Summary ---
Author Organization [facility] Address [address] [place] [address] Care Team Providers Care Mission Planner Name Role Phone Kale Evans MD Primary Care Provider [phone] Allergies No known active allergies Medications levothyroxine [...] Type Department Care Team Description 07/30/2024 Scan [employer] INFO SRVCS Scanned, Doc Med Group 07/30/2024 Telephone [facility] Multispecialty Care - [facility] [address] [place] [address] Cesar De Souza, Medication Problem [...] Comments Blood Pressure 130/71 06/13/2024 11:12 AM CUSTOMER EXPERIENCE CONSULTANT Pulse 81 06/13/2024 11:12 AM CUSTOMER EXPERIENCE CONSULTANT Temperature 36.8 C (98.2 F) 12/23/2019 8:51 AM CDT Respiratory Rate 16 06/13/2024 11:12 AM CUSTOMER EXPERIENCE CONSULTANT Oxygen Saturation 99% 06/13/2024 11:12 AM CUSTOMER EXPERIENCE CONSULTANT ra Inhaled Oxygen Concentration - - Weight 73.5 kg (162 lb) 06/13/2024 11:12 AM CUSTOMER EXPERIENCE CONSULTANT Height 180.3 cm (5' 11) 06/13/2024 11:12 AM CUSTOMER EXPERIENCE CONSULTANT Body Mass Index 22.59 06/13/2024 11:12 AM CUSTOMER EXPERIENCE CONSULTANT Plan of Treatment Health Maintenance Due Date [...] 5 season) 2023 11/26/2020, 11/05/2020 PHQ-2 (Physician [place]) 04/09/2024 DTaP, Tdap and Td Vaccines ( [...] complete this topic Insurance , [address] [place] [address] [facility] [place] [address] Care Teams Mission Planner Relationship Specialty Start Date End Date Kale Evans MD [address] [place] [address] PCP - General FAMILY PRACTICE 02/08/22
--- OUTSIDE RECORDS SUMMARY | 2024-10-27 20:07 | XMS_ITS | Continuity of Care Document ---
Author Organization [facility] Address [address] [place] [address] [place] [address] Phone Care Team Providers Care Irrigator Sprinkling System Name Role Phone Kale Evans MD Unavailable [...] Diagnoses Date Provider Providers Copied on Encounter [facility], [address] [place], [place], [address], tel:[phone] [facility] No Information 5 Nathan Henley. [address] [place], [place], [address] , [place]. tel:[phone] OFFICE/OUTPA TIENT VISIT, EST [facility], [address] [place], [place], [address], tel:[phone] [facility] Medicine thyroid1 (chief complaint)H LP (chief complaint)p ain (chief complaint)a nxiety1 (chief complaint) Mixed hyperlipidemiaGene ralized Anxiety DisorderHashimoto' s thyroiditisChronic pain syndromeIron deficiency anemia 5 Nathan Henley. [address], [place], [place], [address] , [place]. tel:[phone] OFFICE/OUTPA TIENT VISIT, [facility], [address], [place], [place], [address], [place] tel:[phone] [facility] asthma1 (chief complaint)p ain (chief complaint)i atul (chief complaint)k nee pain1 (chief complaint) Centrilobular emphysemaChronic pain syndromePain in left kneeIron deficiency anemia 5 Nathan Henley. [address], [place], [place], [address] , [place]. tel:[phone] OFFICE/OUTPA TIENT VISIT, [facility], [address], [place], [place], [address], [place] tel:[phone] [facility] COPD1 (chief complaint)p ain (chief complaint)H LP (chief complaint) Centrilobular emphysemaChronic pain syndromeMixed hyperlipidemiaAcut e bronchitis 4 Nathan Henley. [address], [place], [place], [address] , [place]. tel:[phone] OFFICE/OUTPA TIENT VISIT, [facility], [address], [place], [place], [address], [place] tel:[phone] [facility] COPD1 (chief complaint)h ashimoto1 (chief complaint)a nxiety1 (chief complaint) Generalized Anxiety DisorderCentrilobu lar emphysemaChronic pain syndromeHashimoto' s thyroiditis 4 Nathan Henley. [address], [place], [place], [address] , [place]. tel:[phone] OFFICE/OUTPA TIENT VISIT, [facility], [address], [place], [place], [address], [place] tel:[phone] [facility] sick (chief complaint)C OPD1 (chief complaint) Centrilobular emphysemaAcute bronchitis 4 Nathan Henley. [address], [place], [place], [address] , [place]. tel:[phone] OFFICE/OUTPA TIENT VISIT, EST [facility], [address], [place], [place], [address], [place] tel:[phone] [facility] Medicine COPD1 (chief complaint)b ack pain1 (chief complaint)c olon polyp1 (chief complaint) Centrilobular emphysemaPolyp of colonChronic pain syndrome 4 Nathan Henley. [address], [place], [place], [address] , [place]. tel:[phone] PREV VISIT, EST, AGE 40-64 [facility], [address], [place], [place], [address], [place] tel:[phone] [facility] physical (chief complaint) Encounter for general adult medical examination without abnormal findings 4 Nathan Henley. [address], [place], [place], [address] , [place]. tel:[phone] OFFICE/OUTPA TIENT VISIT, EST [facility], [address], [place], [place], [address], [place] tel:[phone] [facility] kcl (chief complaint)h ematuria1 (chief complaint)a nemia1 (chief complaint)C OPD1 (chief complaint) Asymptomatic microscopic hematuriaIron deficiency anemiaHypokalemiaE dimitrios of scrotumCentrilobul ar emphysema 4 Nathan Henley. [address], [place], [place], [address] , [place]. tel:[phone] OFFICE/OUTPA TIENT VISIT, EST [facility], [address], [place], [address], [place] tel:[phone] [facility] joint pain1 (chief complaint)i atul deficiency1 (chief complaint)l ow kcl (chief complaint)f olate (chief complaint)h epatospleno megaly1 (chief complaint) Iron deficiencyHepatome tory w/ splenomegalyPain in jointHypokalemiaFo late deficiencyAsymptom atic microscopic hematuriaGeneraliz ed Anxiety Disorder 4 Nathan Vivas [address], [place], [place], [address] , [place]. tel:[phone] OFFICE/OUTPA TIENT VISIT, [facility], [address], [place], [place], [address], [place] tel:[phone] [facility] physical (chief complaint)H LP (chief complaint)w eight loss1 (chief complaint)p ain1 (chief complaint)t esticular pain1 (chief complaint) Night sweatsChronic pain syndromeCyst of epididymisMixed hyperlipidemiaPain in jointAbnormal weight lossHepatomegaly w/ splenomegaly Mar- 3 Nathan Vivas [address], [place], [place], [address] , [place]. tel:[phone] OFFICE/OUTPA TIENT VISIT, [facility], [address], [place], [place], [address], [place] tel:[phone] [facility] hashimoto1 (chief complaint)p ain (chief complaint)t esticular pain1 (chief complaint)u mbilical hernia1 (chief complaint) Chronic pain syndromeHashimoto' s thyroiditisUmbilic al herniaCyst of epididymis 3 Nathan Vivas [address], [place], [place], [address] , [place]. tel:[phone] OFFICE/OUTPA TIENT VISIT, [facility], [address], [place], [address], [place] tel:[phone] [facility] epididymal (chief complaint)p ain (chief complaint)a nxiety1 (chief complaint) Generalized Anxiety DisorderCyst of epididymisChronic pain syndrome 3 Nathan Vivas [address], [place], [place], [address] , [place]. tel:[phone] OFFICE/OUTPA TIENT VISIT, [facility], [address], [place], [place], [address], [place] tel:[phone] [facility] hashimoto1 (chief complaint)T b (chief complaint)T B1 (chief complaint) Encounter for screening for respiratory TBHashimoto's thyroiditis 3 Nathan Henley. [address], [place], [place], [address] , [place]. tel:[phone] OFFICE/OUTPA TIENT VISIT, [facility], [address], [place], [place], [address], [place] tel:[phone] [facility] HLP (chief complaint)c yst1 (chief complaint)a nxiety1 (chief complaint)p ain (chief complaint)l eukocytosis 1 (chief complaint) Mixed hyperlipidemiaLeuk ocytosisCyst of epididymisLiver diseaseChronic pain syndromeGeneralize d Anxiety Disorder 3 Nathan Vivas [address], [place], [place], [address] , [place]. tel:[phone] OFFICE/OUTPA TIENT VISIT, [facility], [address], [place], [place], [address], [place] tel:[phone] [facility] palpitation 1 (chief complaint)a nxiety1 (chief complaint)n europathy1 (chief complaint) PalpitationsChroni c pain syndromeGeneralize d Anxiety Disorder 3 Nathan Vivas [address], [place], [place], [address] , [place]. tel:[phone] OFFICE/OUTPA TIENT VISIT, [facility], [address] [place], [address], [place] tel:[phone] [facility] leukocytosi s1 (chief complaint)H LP (chief complaint)L FT (chief complaint)t esticular pain1 (chief complaint)p alpitatoin1 (chief complaint)a nxiety1 (chief complaint) LeukocytosisLiver diseaseMixed hyperlipidemiaDiso rder of iron metabolism, unspecifiedCyst of epididymisDepressi onPalpitations 2 Nathan Henley. [address], [place], [place], [address] , [place]. tel:[phone] OFFICE/OUTPA TIENT VISIT, EST [facility], [address], [place], [place], [address], [place] tel:[phone] [facility] testicular pain1 (chief complaint)a nemia1 (chief complaint)p alpitation1 (chief complaint)t hyroid1 (chief complaint)a nxiety1 (chief complaint)p ain (chief complaint) PalpitationsCyst of epididymisMixed hyperlipidemiaLeuk ocytosisDepression AnemiaDisorder of iron metabolism, unspecifiedHashimo to's thyroiditisChronic pain syndrome 2 Nathan Vivas [address], [place], [place], [address] , [place]. tel:[phone] PREV VISIT, EST, AGE 18-39 [facility], [address], [place], [place], [address], [place] tel:[phone] [facility] anemia1 (chief complaint)u mbilical hernia1 (chief complaint)t esticular pain1 (chief complaint)a nxiety1 (chief complaint)b ack pain1 (chief complaint) Encounter for general adult medical examination without abnormal findings 2 Nathan Henley. [address], [place], [place], [address] , [place]. tel:[phone] OFFICE/OUTPA TIENT VISIT, EST [facility], [address], [place], [place], [address], [place] tel:[phone] [facility] anxiety1 (chief complaint)l eg pain1 (chief complaint) Muscle atrophy of lt lower legNeuropathyDepre ssion 2 Nathan Henley. [address], [place], [place], [address] , [place]. tel:[phone] OFFICE/OUTPA TIENT VISIT, EST [facility], [address], [place], [place], [address], [place] tel:[phone] [facility] depression1 (chief complaint)l eg pain1 (chief complaint) DepressionNeuropat hyMuscle atrophy of lt lower legMeningitis, unspecified Fe 2 Nathan Henley. [address], [place], [place], [address] , [place]. tel:[phone] OFFICE/OUTPA TIENT VISIT, [facility], [address] [place], [place], [address], [place] tel:[phone] [facility] sick (chief complaint) Viral infection 1 Nathan Henley. [address], [place], [place], [address] , [place]. [phone] OFFICE/OUTPA TIENT VISIT, [facility], [address] [place], [place], [address], [place] tel:[phone] [facility] pain (chief complaint)t hyroid1 (chief complaint)a nxiety1 (chief complaint)f dorinda nodule1 (chief complaint) Chronic pain syndromeGeneralize d Anxiety DisorderHashimoto' s thyroiditisOther specified mononeuropathies of unspecified lower limbLocalized swelling, mass and lump, unspecified upper limb 1 Nathan Henley. [address], [place], [place], [address] , [place]. tel:[phone] OFFICE/OUTPA TIENT VISIT, [facility], [address], [place], [place], [address], [place] tel:[phone] [facility] pain (chief complaint)l os folate1 (chief complaint)t hyroid (chief complaint) HypothyroidismFola te deficiencyChronic pain syndromeGeneralize d Anxiety Disorder 1 Nathan Henley. [address], [place], [place], [address] , [place]. [phone] PREV VISIT, NEW, AGE 18-39 [facility], [address], [place], [place], [address], tel:[phone] [facility] physical (chief complaint) Encounter for general adult medical examination without abnormal findings [address], [place], [address] , . tel:[phone] Family History Family Member Type Diagnosis Age At Onset Father Problem Coronary artery disease 58 Sister Problem Diabetes mellitus Mother Problem Diabetes mellitus Father Problem lung CA from tobacco Paternal uncle Problem thyroid CA Payers Payer name Insurance type Covered libertarian ID Authorrandalla tijanice(s) [facility] [id number] Social History Type Description Quantity Date Captured Comments Sex Male Smoking Status No Information Chief Complaint And Reason For Visit No Information Plan Of Treatment Date Type Action Status Referral Ordered: CALVIN BRAR -[facility] Phys[facility] : Orthopaedic Surgery (related to Pain in left knee) ordered Referral Referred To: CALVIN BRAR [address], [place], [phone] Ordered: Referrals: [facility]opathic [facility] Osteopathic Physicians : Orthopaedic Surgery. CALVIN BRAR. Evaluate and treat ordered Referral Ordered: Dinesh Harris -[facility] : Internal Medicine : Gastroenterology (related to Hepatomegaly w/ splenomegaly) ordered Referral Ordered: CHEST X-RAY PA/LAT TWO-VIEWS ordered Referral Referred To: Dinesh Harris [address], [place], [id number] Ordered: Referrals: [facility]opathic Phys[facility] : Internal Medicine : Gastroenterology. Dinesh Harris. Evaluate and treat ordered Referral Ordered: Gaston Holly -[facility] : Urology (related to Cyst of epididymis) ordered Referral Referred To: Gaston Holly [address]
[facility] [address], [place], [id number] Ordered: Referrals: Allopathic & Osteopathic Physicians : [...] To: Rajiv Howard MD [address] [place], [place], [address] Ordered: Referrals: Rajiv Howard MD Evaluate and treat ordered Referral Ordered: Referrals: Urology. Evaluate and treat ordered Referral Ordered: MOTOR NERVE CONDUCTION TEST ordered Referral Referred To: Gracy HUTTON, Fab Garcia [address] [facility]
[address] [place], [place], [address] Ordered: Referrals: Fab Dubose MD. Evaluate and treat ordered Referral Ordered: US THYROID ordered History Of Present Illness Encounter Date Complaint History Of Prese nt Illness anxiety1 Pt has chronic a nxiety and depression Pt takes zoloft and doing ok Pt denies any suicidal or homicidal thought Pt denies any crying spells HLP Pt has HLP Pt lesvia betancourt .Pt denies any myalgia pain Pt c/o chronic l ow back pain with left leg sciatica and neuropathy symptoms Pt takes ultram, baclofen and neurontin and doing ok Pt denies any loss of bowel or bladder control or saddle area paresthesia. He only takes neurontin once per day thyroid1 Pt has fernanda . Pt takes synthroid Pt denies any dysphagia or neck pain asthma1 pt has overlappi ng asthma and [...] denies any swelling or redness or warmth HLP Pt has HLP he ta norm zunigaor and doing ok Pt denies any myalgia pain Pt c/o chronic l ow back pain with left leg sciatica and neuropathy symptoms Pt takes ultram, baclofen and neurontin and doing ok Pt denies any loss of bowel or bladder control or saddle area paresthesia. He only takes neurontin once per day COPD1 Pt has emphysema Pt feels chronic sob Pt still smokes here and there. Pt saw pulmonary recently and had chest CT and PFT done and he is on trelegy and was started on airsupra. Pt states that he breaths ok but still feels some sob. He c/o acute onset of productive cough for several days with worsening sob and wheezing sometimes. COPD Pt has COPD .Pt is seeing [...] with abx and steroid. Pt feels sob. COPD1 Pt has COPD Pt i s on breztri inhaler and he notices slightly improvement of his daily sob Pt has robert with pulmonal next month. Pt uses albuterol PRn. COPD1 Pt has rather se joshua COPD from history of smoking. Pt has robert with pulmonary in 3 weeks. Pt does feel frequent sob, especially with physical exertion. Pt denies any hemoptysis, cough back pain1 Pt c/o chronic l ow back pain with left leg sciatica and neuropathy symptoms Pt takes ultram, baclofen and neurontin and doing ok Pt denies any loss of bowel or bladder control or saddle area paresthesia colon polyp1 Pt has colon armida yp, which is tubular adenoma Pt denies any lower Gi issue physical Pt needs annual physical pt has [...] weeks ago Pt could not tolerate wellbutrin kcl Pt has history o f low kcl Pt had repeat lab done and his kcl as well as mag are normal. hematuria1 pt has history o f hematuria pt denies any urinary symptoms .Repeat UA was clear of any blood. Pt is s/p left testicle removal due to mass by urology recently and he is in rather severe pain post op and his urologist did not give him any pain meds He states that ultram is not helping with pain. anemia1 Pt has mild anem ia. his iron was low but repeat iron and ferritin were ok by hematology Pt does have low folate and he is on folate supplement now by hematology. His international project engineer is considering bone marrow biopsy soon. He denies any bleeding COPD Pt had chest CT done by hematology which showed ILD with COPD Pt does feels sob occasionally. Pt denies any hemoptysis Pt is a smoker. iron deficiency1 Pt has iron def iciency [...] denies any hemoptysis. Pt denies any recent home health travel ot denies any sick contact. HLP Pt has [...] weight loss, chill, or recent travel Apr-12-2023 HLP Pt has HLP Pt lesvia betancourt Pt denies any myalgia. his lipid profile is ok with crestor ,Pt denies any myalgia cyst1 pt has left epid idymal cyst and some hydrocele and varicocele. Pt went back to see urology and will get it removed pt had to reschedule surgery due to personal issue ,Pt has mild pain sometimes Pt denies any injury, redness, warmth Pt denies any acute pain Pt states that the cyst is getting bigger anxiety1 Pt has chronic a nxiety and depression with PTSD Pt saw psychiatrist who told him to continue zoloft for now he is off lamictal and he is doing better in terms of his mood with zoloft and counseling Pt denies any suicidal or homicidal thought pain Pt has back pain and left leg neuropathy Pt takes baclofen and neurontin and doing ok Pt needs refill. Pt also takes ultram PRn leukocytosis1 Pt has chronic l eukocytosis. Pt denies any fever ,Pt saw hematology and had lab done and was told that it is due to smoking. palpitation1 Pt has intermitt ent palpitation Pt [...] Pt has robert with cardiology next week. leukocytosis1 Pt has persisten t leukocytosis Pt denies any fever, chill or illness. His iron saturation normalized. HLP Pt takes crestor and his lipid profile is ok now Pt denies any myalgia LFT Pt has mildly hi gh LFT Pt denies any abd pain or jaundice. testicular pain1 Pt has chronic left testicular pain. Pt has epididymal cyst and hydrocele. He states that he saw urology but was told nothing can be done for his discomfort. Pt is kind of frustrated with urology. He actually had ultrasound done and he was told by urology office nurses. testicular pain1 Pt has chronic left scrotum [...] ultram. Pt wants higher dose of ultram umbilical hernia1 Pt recently lau d acute [...] and he wants to go back to zoloft again. back pain1 Pt has chronic l ow back pain with left leg pain with neuropathy and muscle spasm. Pt has history of mentis testicular pain1 Pt c/o left darrel ticular [...] worsening pain. Pt denies any urinary symptoms anemia1 Pt has mild anem ia and high MCV and high glucose on lab from hospital recently. Pt denies any blood loss. Pt denies any polyuria, polydipsia. leg pain1 Pt has history o f [...] homicidal thought. Pt denies any crying spells depression1 Pt has chronic a nxiety and [...] homicidal thought Pt denies any crying spells leg pain1 [...] Pt denies any recent travel or bedrest sick Pt c/o acute ons et of [...] trying OTC meds but not helping much pain Pt has history o f spinal [...] wants to wean off above meds . anxiety1 Pt has mild anxi ety and depression Pt was taking zoloft but he weaned off zoloft recently on his own. Pt states that he does not want to depend on zoloft to feel better. his mood has been ok Pt denies any suicidal or homicidal thought Pt denies any crying spells finger nodule1 Pt has a swellin g [...] feels fatigue. Thyroid ultrasound confirmed fernanda disease pain Pt has history o f spinal [...] baclofen and doing ok Pt needs refill los folate1 Pt has low folat e. Pt does not eat a lot of green vegetable thyroid Pt has hypothyro idism. Pt takes synthroid. His TSH is ok but TPO is high. Pt denies any dysphagia or neck pain physical Pt needs annual physical Pt has [...] migraine as well. pt moved here from [place] one year ago. he used to take [...]
--- OUTSIDE RECORDS SUMMARY | 2024-10-27 20:07 | XMS_ITS | Continuity of Care Document ---
Author Organization [facility] Address [address] [place] [address] Phone Care Team Providers Care Metal Alloy Scientist Name Role Phone Cj PT,MPT,ATC, Aldo Unavailable [...] Diagnoses Date Provider Providers Copied on Encounter [facility] [address], [place], [place], [address], tel:[phone] [place] No Information 5 Cj Carlson. , [place], [place]. [facility], [place], [place], [address], tel:[phone] [place] No Information 5 Almita Lott. . Referring Provider: Graham Madsen, [address], [place], [address]. tel:[phone] [facility], [place], [place], [address], tel:[phone] [place] No Information 6 5 Ohdavorshawn Oren. . Referring Provider: Graham Madsen, [address], [place], [address]. tel:[phone] [facility], [address], [address], tel:[phone] [place] No Information 0 5 Ohdavorshawn Oren. . Referring Provider: Graham Madsen, [address], [place], [address]. tel:[phone] [facility] [address], [address], tel:[phone] [place] No Information 0 5 [place], [place], . Referring Provider: Graham Madsen, [address], [place], [address]. tel:[phone] Family History Family Member Type Diagnosis Age At Onset No Information Payers Payer name Insurance type Covered libertarian ID Authorjose jarvis(s) [facility] CI [id number] Social History Type Description Quantity Date Captured [...]
--- OUTSIDE RECORDS SUMMARY | 2024-10-27 20:07 | XMS_ITS | Clinical Summary ---
Author Organization [facility] Address [address] [place] [address] Phone Care Team Providers Care Utility Worker Film Processing Name Role Phone Kale Evans Primary Care Provider [phone] Last Flor MD Unavailable Doug Sims APRN, CNP Unavailable [phone] Allergies No known active allergies Medications gabapentin [...] 09/29/2024 2:10 PM CDT Emergency [facility] [address] [place] [address] Discharge Disposition: LWBS 09/29/2024 Travel from Last [...] this topic Medical Devices Implanted Type Area Paper Tube Cutter Device Identifier Shelf Expiration Date Model / Serial / Lot Impl Msh Jose Antonio Ventralex St [employer]rap Cir Sm 1.7x1.7in - [id number] Implanted:Qty : 1 on 01/19/2023 by Last Flor MD at [facility] IMPLANT N/A: [employer] 02/04/2024 [id number] / [id number] / [id number] Procedures Procedure Name Priority Date/Time Associated Diagnosis Comments HEPATITIS C ANTIBODY Routine 04/12/2023 2:03 PM FINANCE CONSULTANT Leukocytosis, unspecified type Weight loss Night sweats Other fatigue Low serum iron from Last 3 Months or Most Recently Relevant to Health Maintenance Results * HEPATITIS C ANTIBODY (04/12/2023 2:03 PM FINANCE CONSULTANT) HEPATITIS C VIRUS AB SIGNAL CUTOFF NON REACTIVE NON REACTIVE CANCER PUBLIC HEALTH TEACHER [facility] HEPATITIS C VIRUS AB COMMENT [facility] PUBLIC [facility]ALTH TE[facility] Comment: NOT INFECTED WITH HCV UNLESS EARLY OR ACUTE INFECTION IS SUSPECTED (WHICH MAY BE DELAYED IN AN IMMUNOCOMPROMISED INDIVIDUAL), OR OTHER EVIDENCE EXISTS TO INDICATE HCV INFECTION. Blood 04/12/2023 2:03 PM FINANCE CONSULTANT Narrative CANCER PUBLIC HEALTH TEACHER [facility] - 04/13/2023 11:08 AM FINANCE CONSULTANT TESTING PERFORMED AT: [] [address], [address], PHONE: [phone], [employer]: JERMAINE FAJARDO, PHD Release to patient->Immediate us Lissy Melgar MD CHEMISTRY ORDERABLES Final Resul t CANCER PUBLIC HEALTH TEACHER [facility] [address] [address], from Last 3 Months or Most Recently Relevant to Health Maintenance Insurance [facility] Advance Directives * Full Code (Latest Code Status on File) Date Activated Date Inactivated Comments 10/30/2021 9:50 PM 10/31/2021 9:01 PM CPR-Full Be atment: FULL ARREST: Attempt Resuscitation/CPR wit intubation and mechanical ventilation. PRE-ARREST: Use entire range of life support measures to stabilize the patient. Care Teams Utility Worker Film Processing Relationship Specialty Start Date End Date Kale Evans [address] [place] [address] PCP - General Family Medicine 10/30/21 Last Flor MD [address] [address] Consulting Physician Colon and Rectal Surgery 11/08/21 Doug Sims APRN, PHYSICIAN EXECUTIVE [address] [place] [address] Nurse Practitioner Advanced Practice Nurse 03/05/23
--- OUTSIDE RECORDS SUMMARY | 2024-10-27 20:07 | XMS_ITS | Encounter Summary ---
Author Organization [facility] Address [address] [place] [address] Phone Care Team Providers Care Product Development Manager Name Role Phone Kale Evans Primary Care Provider Last Flor MD Unavailable Doug Sims APRN, MANAGER LABOR RELATIONS Unavailable Encounter Details Date Type Department Care Team (Late st Contact Info) Description 10/25/2023 Telephone [facility] [address] [place] [address] Andrew Potts MD [address] [address] Social History Tobacco Use Types [...] on filedocumented in this encounter Care Teams Product Development Manager Relationship Specialty Start Date End Date Kale Evans [address] [place] [id number] PCP - General Family Medicine 10/30/21 Last Flor MD [address] [address] Consulting Physician Colon and Rectal Surgery 11/08/21 Doug Sims APRN, MANAGER LABOR RELATIONS [address] [place] [address] Nurse Practitioner Advanced Practice Nurse 03/05/23 documented as of this encounter
--- NOTE | 2024-10-27 21:37 | ED.GENADULT ---
HPI - General Adult General Chief complaint: Wound/Laceration Stated complaint: lac Time Seen by Provider: 10/27/24 19:56 History of Present Illness HPI narrative: 43-year-old male present to the emergency department for evaluation for a facial injury. Patient was working with a metal shelf and got struck in the face. Patient denies any loss of consciousness but did have a laceration to the left upper lip involving the vermilion border. Left-sided facial tenderness. Patient denied any neck or back pain. Patient denies any other pain or injury. Related Data Home Medications ?Medication ?Instructions ?Recorded ?Confirmed ?Last Taken ?Type baclofen 10 mg tablet 10 mg PO DAILY 04/13/23 04/18/23 Unknown History gabapentin 600 mg tablet 600 mg PO DAILY 04/13/23 04/18/23 Unknown History ipratropium 20 mcg-albuterol 100 1 puff inhalation DAILY 04/13/23 04/18/23 Unknown History mcg/actuation mist for inhalation (Combivent Respimat) levothyroxine 50 mcg tablet 50 mcg PO DAILY 04/13/23 04/18/23 Unknown History rosuvastatin 10 mg tablet 10 mg PO DAILY 04/13/23 04/18/23 Unknown History sertraline 100 mg tablet 100 mg POST-TRANSFUSION 04/13/23 04/18/23 Unknown History Allergies Allergy/AdvReac Type Severity Reaction Status Date / Time No Known Allergies Allergy Verified 10/27/24 18:10 Review of Systems Review of Systems: All systems reviewed & are unremarkable except as noted in HPI and below PMFSH Social History Social History Smoking packs per day: 0.5 Smoking cigarettes per day: 10.0 Years smoked: 20 Smoking pack-years: 10.00 Smoking status: Current every day smoker Tobacco type: cigarettes Alcohol intake: never Substance use: never Living arrangements: with family Spiritual care concerns: No Exam Narrative: APPEARANCE: Well appearing, no pain, no distress, well-nourished. HEAD: normocephalic, atraumatic. EYES: PERRLA/EOMI, conjunctivae clear. NOSE: Normal no drainage EARS:TMS clear with good light reflex. THROAT: Pharynx clear, no exudate. NECK: Supple. No adenopathy, no masses. RESPIRATORY: Airway patent, respirations nonlabored. Clear to auscultation bilaterally, no rales, rhonchi, wheezing. CARDIOVASCULAR: Regular rate and rhythm without murmurs rubs or gallops. ABDOMINAL: Soft, nontender, nondistended, normal bowel sounds MUSCULOSKELETAL: Moves all extremities. Strength/ROM intact, No edema, No calf tenderness. NEURO: Alert. Cranial nerves II through XII intact. Good gait. Good coordination SKIN: Upper lip laceration Course Vital Signs Vital signs: Vital Signs Temperature 97.6 F 10/27/24 18:20 Pulse Rate 74 10/27/24 18:20 Respiratory Rate 16 10/27/24 18:20 Blood Pressure 139/74 10/27/24 18:20 Pulse Oximetry 98 10/27/24 18:20 Temperature 97.6 F 10/27/24 18:20 Pulse Rate 86 10/27/24 22:36 Respiratory Rate 16 10/27/24 22:36 Blood Pressure 128/78 10/27/24 22:36 Pulse Oximetry 97 10/27/24 22:36 Procedures Laceration Laceration 1: Time: 21:40 Site: face and lip Side (If applicable): left Size (cm): 3 Description: linear and involves mickey border Depth: simple, single layer Local Anesthetic: lidocaine 1% Amount of anesthesia used (mL): 2 Pre-repair: wound explored, irrigated and irrigated extensively ====== Skin Level ====== Skin layer closed with: nylon Size (cm): 6-0 Number of sutures: 5 Technique: simple, interrupted ====== Subcutaneous Layer ====== ====== Muscle Layer ====== ====== Tendon Layer ====== Medical Decision Making [facility] Narrative Medical decision making narrative: 43-year-old male presents emergency department for evaluation for a facial injury. Laceration was repaired as described in the procedure note. Patient's tetanus was up-to-date. Patient was started on antibiotics. Head CT and facial CT were negative. Patient family updated on results of the workup they are comfortable with plan for discharge and close follow-up. Differential Diagnosis Differential Diagnosis: Facial fracture, facial contusion, subdural hematoma, subarachnoid hemorrhage Vital Signs Vital Signs: Vital Signs Temperature 97.6 F 10/27/24 18:20 Pulse Rate 74 10/27/24 18:20 Respiratory Rate 16 10/27/24 18:20 Blood Pressure 139/74 10/27/24 18:20 Pulse Oximetry 98 10/27/24 18:20 Temperature 97.6 F 10/27/24 18:20 Pulse Rate 86 10/27/24 22:36 Respiratory Rate 16 10/27/24 22:36 Blood Pressure 128/78 10/27/24 22:36 Pulse Oximetry 97 10/27/24 22:36 Imaging Data Radiologist's impression: Impressions Head CT 10/27/24 21:22 IMPRESSION: No acute intracranial process. Polypoid and mucoperiosteal sinus disease. Aerated secretions in the left frontal sinus as can be seen with acute sinusitis or minor mucosal hemorrhage in the setting of trauma. Face CT 10/27/24 21:26 IMPRESSION: Left upper lip soft tissue injury, correlate for penetrating trauma. No radiopaque foreign body detected. Facial bone fracture detected. Possible arch denture or removal dental appliance, correlate clinically. Polypoid and mucoperiosteal sinus disease. Aerated secretions in the left frontal sinus as can be seen with acute sinusitis or minor mucosal hemorrhage in the setting of trauma. Discharge Plan Discharge Clinical Impression: Laceration of face with complication, Contusion of face Patient Disposition: Home Condition: Stable Instructions: Antibiotic Form, Care For Your Stitches (ED), Laceration (ED) Additional Instructions: Antibiotic as directed until completed. Tylenol and ibuprofen for pain control. Wound care as directed. Sutures will need to be removed 5-7 days. If you have any worsening symptoms then please call or return to the emergency department. Patient Language: Rwandan Prescriptions: New cephalexin 500 mg capsule 500 mg PO Q12H 7 Days Qty: 14 0RF No Action sodium,potassium,mag sulfates [Suprep Bowel Prep Kit] 17.5-3.13-1.6 gram recon soln See Rx Instructions PO .COMPLEX Qty: 354 0RF Rx Instructions: FOLLOW DOCTORS WRITTEN INSTRUCTIONS gabapentin 600 mg tablet 600 mg PO DAILY sertraline 100 mg tablet 100 mg POST-TRANSFUSION baclofen 10 mg tablet 10 mg PO DAILY levothyroxine 50 mcg tablet 50 mcg PO DAILY rosuvastatin 10 mg tablet 10 mg PO DAILY Combivent Respimat 20-100 mcg/actuation mist 1 puff INHALATION DAILY Follow-up/Referrals: Kale Evans MD [Primary Care Provider] -
[2024-10-27] MEDS: CEPHALEXIN 500 MG CAPSULE PO (22:06)
[2024-10-27 22:36] VITALS: BP 128/78; PULSE 86; RESP 16; O2SAT 97
== END 2024-10-27 22:10 | disposition home or self-care (01) ==
PROVIDERS: Emergency Provider Emergency Medicine; PCP Emergency Medicine
DX: S01.511A Laceration without foreign body of lip, initial encounter (principal); S00.83XA Contusion of other part of head, initial encounter; W22.8XXA Striking against or struck by other objects, initial encounter; F17.210 Nicotine dependence, cigarettes, uncomplicated
CPT/HCPCS: 12013; 70450; 70486; 99284; A9270